=== PATIENT | male | born 1940 | race Caucasian/White ===

== ENCOUNTER 2020-06-20 14:32 | Inpatient (IN) | payer MEDICARE, OTHER ==
--- NOTE | 2020-06-20 15:12 | ERPHSYRPT ---
- History of Present Illness Time Seen by Provider: 06/20/20 14:50 Source: patient Exam Limitations: no limitations Patient Subjective Stated Complaint: pt here for weakness and confusion, he started getiing ill first of may and was seen at [facility] 06/03, dx with bronchitis , she states he did not finish hes meds given to him and has progressively gone down hill, and has not beed eating, drinking or taking meds Triage Nursing Assessment: pt arrived per POV, took 2 to get pt in bed,pt with eyes closed, he follows simple commands,face mask applied,resp easy, right lobe diminshed, no edema noted, skin w/d/p Physician History: Patient is a 80-year-old male presents to our ED via private vehicle driven by his for evaluation of generalized weakness and confusion. states symptoms started on June 03. Patient was not feeling well. Patient went to the [place] and was diagnosed with a bronchitis. Patient was medications presumably antibiotic and did not finish his prescription. Since then patient has been pr ogressively weak. Now confused. states patient has not eaten in several days. No fever. No chest pain. No trauma. No nausea or vomiting. No diarrhea. No rash. No obvious Covid exposure. Symptoms are progressive. Symptoms are moderate in intensity. No specific worsening or improving factors. states patient is otherwise generally healthy. He only takes medication for psoriatic arthritis. She voices no other complaints or concerns at this time. Timing/Duration: week(s) Severity: moderate Modifying Factors: Improves With: nothing Associated Symptoms: loss of appetite, No nausea, No vomiting, No abdominal pain, No shortness of breath, No diaphoresis, No cough, No chills, No chest pain, No fever Allergies/Adverse Reactions: No Known Drug Allergies Allergy (Unverified 06/20/20 14:46) Home Medications: Ixekizumab [Taltz Autoinjector] 1 ea 06/20/20 [History] No Reportable Medications [No Reported Medications] 06/20/20 [History] Hx Influenza Vaccination/Date Given: No Hx Pneumococcal Vaccination/Date Given: Yes Immunizations Up to Date: Yes Travel Risk - International Travel Have you traveled outside of the country in past 3 weeks: No - Coronavirus Screening Are you exhibiting any of the following symptoms?: No Close contact with a COVID-19 positive Pt in past 14-21 Days: No - Review of Systems Constitutional: No Symptoms, Other (Review of systems obtained from .), No Fever, No Chills Eyes: No Symptoms Ears, Nose, & Throat: No Symptoms Respiratory: No Symptoms, No Cough, No Dyspnea Cardiac: No Symptoms, No Chest Pain, No Edema, No Syncope Abdominal/Gastrointestinal: No Symptoms, No Abdominal Pain, No Nausea, No Vomiting, No Diarrhea Genitourinary Symptoms: No Symptoms, No Dysuria Musculoskeletal: No Symptoms, No Back Pain, No Neck Pain Skin: No Symptoms, No Rash Neurological: No Symptoms, No Dizziness, No Focal Weakness, No Sensory Changes Psychological: No Symptoms Endocrine: No Symptoms Hematologic/Lymphatic: No Symptoms Immunological/Allergic: No Symptoms All Other Systems: Reviewed and Negative - Past Medical History Pertinent Past Medical History: Yes Musculoskeletal History: Other Other Medical History: soriatic arthritis - Past Surgical History Past Surgical History: No - Social History Smoking Status: Former smoker Exposure to second hand smoke: No Drug Use: none Patient Lives Alone: No - Nursing Vital Signs Nursing Vital Signs: Initial Vital Signs Temperature 86 F 06/20/20 14:33 Pulse Rate 87 06/20/20 14:33 Respiratory Rate 22 06/20/20 14:33 Blood Pressure 195/114 06/20/20 14:33 O2 Sat by Pulse Oximetry 96 06/20/20 14:33 Pain Scale Pain Intensity 0 - Physical Exam General Appearance: alert, other (Patient is resting on stretcher. His eyes are closed. Patient respond to simple commands. Patient appears dehydrated.) Eye Exam: PERRL/EOMI, eyes nml inspection Ears, Nose, Throat Exam: normal ENT inspection, TMs normal, dry mucous membranes, TM abnormal (R), TM abnormal (L) Neck Exam: normal inspection, non-tender, supple, full range of motion Respiratory Exam: normal breath sounds, lungs clear, airway intact, No respiratory distress, No accessory muscle use Cardiovascular Exam: regular rate/rhythm, normal heart sounds, normal peripheral pulses Gastrointestinal/Abdomen Exam: soft, normal bowel sounds, No tenderness, No mass Back Exam: normal inspection, normal range of motion, No CVA tenderness, No vertebral tenderness Extremity Exam: normal inspection, normal range of motion, pelvis stable Neurologic Exam: alert, cooperative, antenna rigger II-XII nml as tested, sensation nml, other (Patient required max assist x2 for transfer. Patient is weak. He is cooperative. Patient responds to simple commands. No facial droop. No focal or lateralizing symptoms.), No motor deficits, No sensory deficit, No facial droop Skin Exam: normal color, warm, dry, No rash Lymphatic Exam: No adenopathy SpO2 Interpretation: normal SpO2: 97 O2 Delivery: Room Air - Course Nursing assessment & vital signs reviewed: Yes EKG Interpreted by Me: RATE, Sinus Rhythm, NORMAL AXIS, prolonged QT interval, Non-specific ST Changes - Radiology Exams Chest X-ray Interpretation: Teleradiologist Report (Chest shows hyperinflation however clear. Heart is not enlarged. Mild scattered vascular calcifications. Bony thorax intact with mild degenerative changes and minimal double curvature scoliosis.) - CT Exams Head CT Interpretation: Tele-radiologist Report (Cerebellum and left basal ganglia old infarcts. Remaining CT head without contrast is negative. Follow-up CT or MRI may yield further information if there remains clinical concern.) Ordered Tests: Active Orders 24 hr Category Date Time Status Pattern Finisher STAT Care 06/20/20 14:52 Active EKG-ER Only STAT Care 06/20/20 14:50 Active House [Catheter-[facility]] STAT Care 06/20/20 16:13 Active IV Insertion STAT Care 06/20/20 14:50 Active Pulse Oximetry (ED) STAT Care 06/20/20 14:50 Active CHEST 1 VIEW (PORTABLE) Stat Exams 06/20/20 14:52 Completed CHEST WITH CONTRAST [CT] Stat Exams 06/20/20 16:01 Taken HEAD WITHOUT CONTRAST [CT] Stat Exams 06/20/20 14:54 Completed CBC W DIFF Stat Lab 06/20/20 14:55 Completed CMP Stat Lab 06/20/20 14:55 Completed CULTURE,URINE Stat Lab 06/20/20 15:26 Received D-DIMER QUANTITATIVE Stat Lab 06/20/20 14:55 Completed MAGNESIUM Stat Lab 06/20/20 14:55 Completed TROPONIN Q3H Lab 06/20/20 14:55 Completed TROPONIN Q3H Lab 06/20/20 18:00 Received TROPONIN Q3H Lab 06/20/20 21:00 Ordered TROPONIN Q3H Lab 06/21/20 00:00 Ordered TROPONIN Q3H Lab 06/21/20 03:00 Ordered UA W/RFX UR CULTURE Stat Lab 06/20/20 15:26 Completed Transfer Order Routine Transfer 06/20/20 Ordered Medication Summary Generic Name Dose Route Start Last Admin Trade Name Qamar PRN Reason Stop Dose Admin Sodium Chloride 1,000 mls @ 50 mls/hr 06/20/20 15:00 06/20/20 15:28 Sodium Chloride 0.9% 1000 Ml IV 07/20/20 14:59 50 mls/hr .Q20H CARMEN Administration Lab/Rad Data: Laboratory Result Diagrams 06/20/20 14:55 06/20/20 14:55 Laboratory Results 06/20/20 06/20/20 06/20/20 Range/Units 15:26 14:55 14:55 WBC (4.0-10.5) K/mm3 RBC (4.1-5.6) M/mm3 Hgb (12.5-18.0) gm/dl Hct (42-50) % MCV (78-100) fl MCH (26-32) pg MCHC (32-36) g/dl RDW (11.5-14.0) % Plt Count (150-450) K/mm3 MPV (7.5-11.0) fl Gran % (36.0-66.0) % Eos # (Auto) (0-0.5) Absolute Lymphs (auto) (1.0-4.6) Absolute Monos (auto) (0.0-1.3) Lymphocytes % (24.0-44.0) % Monocytes % (0.0-12.0) % Eosinophils % (0.00-5.0) % Basophils % (0.0-0.4) % Absolute Granulocytes (1.4-6.9) Basophils # (0-0.4) D-Dimer 1780 H* (215-500) ng/mL Sodium (137-145) mmol/L Potassium (3.5-5.1) mmol/L Chloride (98-107) mmol/L Carbon Dioxide (22-30) mmol/L Anion Gap (5-15) MEQ/L BUN (9-20) mg/dL Creatinine (0.66-1.25) mg/dL Estimated GFR ML/MIN Glucose (74-106) mg/dL Calcium (8.4-10.2) mg/dL Magnesium (1.6-2.3) mg/dL Total Bilirubin (0.2-1.3) mg/dL AST (17-59) U/L ALT (0-50) U/L Alkaline Phosphatase (38-126) U/L Troponin I < 0.012 (0.000-0.034) ng/mL Serum Total Protein (6.3-8.2) g/dL Albumin (3.5-5.0) g/dL Urine Color YOKO (YELLOW) Urine Appearance SLIGHTLY CLOUDY (CLEAR) Urine pH 5.0 (5-6) Ur Specific Prospect 1.028 (1.005-1.025) Urine Protein 30 (Negative) Urine Ketones TRACE (NEGATIVE) Urine Blood LARGE (0-5) Humberto/ul Urine Nitrite NEGATIVE (NEGATIVE) Urine Bilirubin NEGATIVE (NEGATIVE) Urine Urobilinogen 2 (0-1) mg/dL Ur Leukocyte Esterase NEGATIVE (NEGATIVE) Urine WBC (Auto) 26-50 (0-5) /HPF Urine RBC (Auto) >101 (0-2) /HPF U Epithel Cells (Auto) NONE (FEW) /HPF Urine Bacteria (Auto) MODERATE (NEGATIVE) /HPF Urine Mucus (Auto) SLIGHT (NEGATIVE) /HPF Urine Culture Reflexed YES (NO) Urine Glucose NEGATIVE (NEGATIVE) mg/dL 06/20/20 06/20/20 Range/Units 14:55 14:55 WBC 7.5 (4.0-10.5) K/mm3 RBC 3.62 L (4.1-5.6) M/mm3 Hgb 11.6 L (12.5-18.0) gm/dl Hct 35.3 L (42-50) % MCV 97.5 (78-100) fl MCH 32.0 (26-32) pg MCHC 32.9 (32-36) g/dl RDW 13.2 (11.5-14.0) % Plt Count 347 (150-450) K/mm3 MPV 8.9 (7.5-11.0) fl Gran % 85.9 H (36.0-66.0) % Eos # (Auto) 0.12 (0-0.5) Absolute Lymphs (auto) 0.71 L (1.0-4.6) Absolute Monos (auto) 0.22 (0.0-1.3) Lymphocytes % 9.5 L (24.0-44.0) % Monocytes % 2.9 (0.0-12.0) % Eosinophils % 1.6 (0.00-5.0) % Basophils % 0.1 (0.0-0.4) % Absolute Granulocytes 6.43 (1.4-6.9) Basophils # 0.01 (0-0.4) D-Dimer (215-500) ng/mL Sodium 139 (137-145) mmol/L Potassium 4.3 (3.5-5.1) mmol/L Chloride 100 (98-107) mmol/L Carbon Dioxide 30 (22-30) mmol/L Anion Gap 12.7 (5-15) MEQ/L BUN 33 H (9-20) mg/dL Creatinine 1.25 (0.66-1.25) mg/dL Estimated GFR 58.8 ML/MIN Glucose 152 H (74-106) mg/dL Calcium 9.5 (8.4-10.2) mg/dL Magnesium 2.6 H (1.6-2.3) mg/dL Total Bilirubin 0.80 (0.2-1.3) mg/dL AST 21 (17-59) U/L ALT 16 (0-50) U/L Alkaline Phosphatase 100 (38-126) U/L Troponin I (0.000-0.034) ng/mL Serum Total Protein 7.5 (6.3-8.2) g/dL Albumin 3.5 (3.5-5.0) g/dL Urine Color (YELLOW) Urine Appearance (CLEAR) Urine pH (5-6) Ur Specific Prospect (1.005-1.025) Urine Protein (Negative) Urine Ketones (NEGATIVE) Urine Blood (0-5) Humberto/ul Urine Nitrite (NEGATIVE) Urine Bilirubin (NEGATIVE) Urine Urobilinogen (0-1) mg/dL Ur Leukocyte Esterase (NEGATIVE) Urine WBC (Auto) (0-5) /HPF Urine RBC (Auto) (0-2) /HPF U Epithel Cells (Auto) (FEW) /HPF Urine Bacteria (Auto) (NEGATIVE) /HPF Urine Mucus (Auto) (NEGATIVE) /HPF Urine Culture Reflexed (NO) Urine Glucose (NEGATIVE) mg/dL - Progress Progress: improved Progress Note: 06/20/20 18:50 Patient reassessed. He is more alert at this time. Patient more conversant after IV fluid administered. Work-up reveals a urinary tract infection. Rocephin administered. Due to the confusion reported by we obtain a CAT scan which revealed an old left cerebellar CVA and a old left basal ganglier CVA x2. D-dimer positive. CTA chest negative for PE. However patient has emphysema and a small pericardial effusion. Case discussed with Dr. Rivas our patients primary care physician who accepts admission to observation. Plan of care discussed with . She agrees to admission at [facility] for further evaluation and treatment. 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
[2020-06-20 15:19] LABS: Absolute Neutrophil Ct (ANC) 6.43 (1.4-6.9); BASOPHIL % 0.1 % (0.0-0.4); Basophil (Absolute #) 0.01 (0-0.4); Eosinophil % 1.6 % (0.00-5.0); Eosinophil (Absolute #) 0.12 (0-0.5); Hematocrit 35.3 % (42-50); Hemoglobin 11.6 gm/dl (12.5-18.0); Lymphocyte (Absolute #) 0.71 (1.0-4.6); Lymphocytes % 9.5 % (24.0-44.0); Mean Cell Volume 97.5 fl (78-100); Mean Corpuscular Hgb Concent. 32.9 g/dl (32-36); Mean Platelet Volume 8.9 fl (7.5-11.0); Monocyte (Absolute #) 0.22 (0.0-1.3); Monocytes % 2.9 % (0.0-12.0); Neutrophil % 85.9 % (36.0-66.0); Platelet Count 347 K/mm3 (150-450); Red Blood Count 3.62 M/mm3 (4.1-5.6); Red Cell Distribution Width 13.2 % (11.5-14.0); White Blood Count 7.5 K/mm3 (4.0-10.5)
--- NOTE | 2020-06-20 15:26 | XRAY ---
Indication: Weakness. Acute mental status change. Pneumonia. Comparison: None Portable chest hyperinflated and clear. Heart is not enlarged. Mild scattered vascular calcifications. Bony thorax intact with mild degenerative changes and minimal double curvature scoliosis. Impression: Nonacute hyperinflated chest with chronic features.
--- NOTE | 2020-06-20 15:27 | XRAY ---
Indication: Acute mental status change. Multiple contiguous axial images obtained through the head without contrast. Comparison: None Age-appropriate global atrophy. Left cerebellum demonstrates moderate size focus of old infarct. Left basal ganglia demonstrates 2 [id number] small foci of old infarct, largest measuring 1.6 cm. No acute intracranial hemorrhage, abnormal extra-axial fluid collection, or mass effect. Fourth ventricle is midline without hydrocephalus. Bony calvarium intact. Visualized paranasal sinuses and mastoid air cells are clear. Impression: Left cerebellum and left basal ganglia old infarcts. Remaining CT head without contrast exam is negative. Follow-up CT or MRI may yield further information if there remains clinical concern.
[2020-06-20] MEDS: Sodium Chloride 0.9% 1000 ML 1,000 ML IV SCH (15:28)
[2020-06-20 15:33] LABS: ALBUMIN 3.5 g/dL (3.5-5.0); ANION GAP 12.7 MEQ/L (5-15); BILIRUBIN,TOTAL 0.8 mg/dL (0.2-1.3); Calcium 9.5 mg/dL (8.4-10.2); Creatinine 1 1.25 mg/dL (0.66-1.25); EST GLOMERULAR FILTRATION RATE 58.8 ML/MIN; MAGNESIUM 2.6 mg/dL (1.6-2.3); Potassium 4.3 mmol/L (3.5-5.1); Total Protein 7.5 g/dL (6.3-8.2)
[2020-06-20 16:30] LABS: Appearance SLIGHTLY CLOUDY (CLEAR); Bacteria MODERATE /HPF (NEGATIVE); Bilirubin NEGATIVE (NEGATIVE); Blood LARGE Ery/ul (0-5); Glucose NEGATIVE (NEGATIVE); Ketones TRACE (NEGATIVE); Leukocyte Esterase NEGATIVE (NEGATIVE); Mucus SLIGHT /HPF (NEGATIVE); Nitrite NEGATIVE (NEGATIVE); Protein,Urine Dip 30 (Negative); RBC >101 /HPF (0-2); Specific Gravity 1.028 (1.005-1.025); Urobilinogen 2 mg/dL (0-1); WBC 26-50 /HPF (0-5)
[2020-06-20] MEDS ORDERED: ROCEPHIN 1 Gm-D5w 50 ml Bag** 1 G/50 ML IVPB IV ONE (22:37)
[2020-06-21 04:53] LABS: Absolute Neutrophil Ct (ANC) 6.15 (1.4-6.9); BASOPHIL % 0.3 % (0.0-0.4); Basophil (Absolute #) 0.02 (0-0.4); Eosinophil % 2.2 % (0.00-5.0); Eosinophil (Absolute #) 0.16 (0-0.5); Hemoglobin 10.6 gm/dl (12.5-18.0); Lymphocyte (Absolute #) 0.81 (1.0-4.6); Lymphocytes % 10.9 % (24.0-44.0); Mean Cell Volume 97.3 fl (78-100); Mean Corpuscular Hemoglobin 31.3 pg (26-32); Mean Corpuscular Hgb Concent. 32.1 g/dl (32-36); Mean Platelet Volume 8.6 fl (7.5-11.0); Neutrophil % 82.6 % (36.0-66.0); Platelet Count 308 K/mm3 (150-450); Red Blood Count 3.39 M/mm3 (4.1-5.6); Red Cell Distribution Width 13.1 % (11.5-14.0); White Blood Count 7.4 K/mm3 (4.0-10.5)
[2020-06-21 05:16] LABS: ALBUMIN 2.7 g/dL (3.5-5.0); ALKALINE PHOSPHATASE 85 U/L (38-126); ANION GAP 11.8 MEQ/L (5-15); BLOOD UREA NITROGEN 31 mg/dL (9-20); CHLORIDE 105 mmol/L (98-107); Calcium 8.9 mg/dL (8.4-10.2); Carbon Dioxide 27 mmol/L (22-30); Creatinine 1 0.98 mg/dL (0.66-1.25); EST GLOMERULAR FILTRATION RATE > 60.0 ML/MIN; Glucose 130 mg/dL (74-106); Potassium 4.3 mmol/L (3.5-5.1); SGOT/AST 23 U/L (17-59); SGPT/ALT 14 U/L (0-50); SODIUM 140 mmol/L (137-145); Total Protein 5.9 g/dL (6.3-8.2)
--- NOTE | 2020-06-21 08:48 | XRAY ---
Indication: Weakness. Elevated d-dimer. Multiple contiguous axial images obtained through the chest using 100 cc Isovue 370 contrast and PE protocol. Comparison: None There is good opacification of the pulmonary arteries to include the lobar and segmental branches. Minimal respiration artifact limits evaluation of the more distal segmental branches. No pulmonary embolus. Enlarged right main pulmonary artery up to 3 cm favors pulmonary hypertension. Heart is not enlarged. There is small anterior pericardial effusion/thickening up to 1.3 cm in thickness. Aorta is mildly arteriosclerotic without aneurysm/dissection. No pathologic mediastinal/hilar lymphadenopathy. Lungs demonstrates diffuse pulmonary emphysema and mild bilateral dependent atelectasis. No suspicious pulmonary mass/nodule, infiltrate, or effusion. Bony thorax intact with mild osteopenia and mild/moderate degenerative changes throughout the spine. Limited upper abdomen demonstrates 1.5 cm right renal cyst. Impression: 1. Negative pulmonary embolus. Enlarged right main pulmonary artery favors pulmonary hypertension. 2. Small pericardial effusion/thickening. Echocardiogram may yield further information if clinically warranted. 3. Diffuse pulmonary emphysema, chronic bony findings, and right renal cyst.
[2020-06-21] MEDS: Sodium Chloride 0.9% 1000 ML 1,000 ML IV SCH (11:35)
--- NOTE | 2020-06-21 11:36 | PCM.HP ---
History of Present Illness - Chief Complaint Chief Complaint: c/o fever, urinary trouble History of Present Illness: is a 80-year-old male presents to our ED via private vehicle driven by his for evaluation of generalized weakness and confusion. states symptoms started on June 03. Patient was not feeling well. Patient went to the [place] and was diagnosed with a bronchitis. Patient was medications presumably antibiotic and did not finish his prescription. Since then patient has been progressively weak. Now confused. states patient has not eaten in several days. No fever. No chest pain. No trauma. No nausea or vomiting. No diarrhea. No rash. No obvious Covid exposure. Symptoms are progressive. Symptoms are moderate in intensity. No specific worsening or improving factors. states patient is otherwise generally healthy. He only takes medication for psoriatic arthritis. She voices no other complaints or concerns at this time. Timing/Duration: week(s) Severity: moderate Modifying Factors: Improves With: nothing Associated Symptoms: loss of appetite, No nausea, No vomiting, No abdominal pain, No shortness of breath, No diaphoresis, No cough, No chills, No chest pain, No fever - Review of Systems Constitutional: No Fever, No Chills Eyes: No Symptoms Ears, Nose, & Throat: No Symptoms Respiratory: Orthopnea, Short Of Breath, No Cough Cardiac: No Chest Pain, No Edema, No Syncope Abdominal/Gastrointestinal: No Abdominal Pain, No Nausea, No Vomiting, No Diarrhea Genitourinary Symptoms: No Dysuria Musculoskeletal: No Back Pain, No Neck Pain Skin: No Rash Neurological: No Dizziness, No Focal Weakness, No Sensory Changes Psychological: No Symptoms Endocrine: No Symptoms Hematologic/Lymphatic: No Symptoms Immunological/Allergic: No Symptoms Medications & Allergies Home Medications: Home Medication List Ixekizumab [Taltz Autoinjector] 1 ea SQ Q30D 06/20/20 [History Confirmed 06/20/20] Allergies/Adverse Reactions: Allergies Allergy/AdvReac Type Severity Reaction Status Date / Time No Known Drug Allergies Allergy Unverified 06/20/20 14:46 - Past Medical History Past Medical History: Yes Musculoskelatal History: Other Comment: soriatic arthritis - Past Surgical History Past Surgical History: No - Social History Smoking Status: Never smoker Exposure to second hand smoke: No Alcohol: None Drug Use: none - Physical Exam Vital Signs: Vital Signs - 24 hr Temp Pulse Resp BP Pulse Ox 12/08/20 08:00 98.8 F 76 18 168/68 93 L 06/21/20 04:00 99.5 F 86 20 156/78 96 06/21/20 00:00 99.1 F 73 22 161/58 95 06/20/20 22:10 96 06/20/20 21:23 98.7 F 71 23 150/68 96 06/20/20 21:21 98.7 F 71 23 150/68 96 06/20/20 21:11 98.7 F 71 23 150/68 96 06/20/20 20:05 72 16 172/73 96 06/20/20 19:00 74 16 170/74 97 06/20/20 18:54 97 06/20/20 18:10 77 22 151/98 95 06/20/20 17:33 98.0 F 73 23 160/66 97 06/20/20 16:11 80 16 175/89 98 06/20/20 15:00 94 L 06/20/20 14:33 86 F 87 22 195/114 97 General Appearance: no apparent distress, alert Neurologic Exam: alert, oriented x 3, cooperative, normal mood/affect, nml cerebellar function, nml station & gait, sensation nml, No motor deficits Eye Exam: PERRL/EOMI, eyes nml inspection Ears, Nose, Throat Exam: normal ENT inspection, TMs normal, pharynx normal, moist mucous membranes Neck Exam: normal inspection, non-tender, supple, full range of motion Respiratory Exam: diminished breath sounds, crackles/rales, rhonchi, wheezing, No respiratory distress Cardiovascular Exam: regular rate/rhythm, normal heart sounds, normal peripheral pulses Gastrointestinal/Abdomen Exam: soft, normal bowel sounds, No tenderness, No mass Back Exam: normal inspection, normal range of motion, No CVA tenderness, No vertebral tenderness Extremity Exam: normal inspection, normal range of motion, pelvis stable Skin Exam: normal color, warm, dry, No rash Lymphatic Exam: No adenopathy Results - Labs Lab/Micro Results: Lab Results-Last 24 Hours 06/20/20 06/20/20 06/20/20 Range/Units 14:55 14:55 14:55 WBC 7.5 (4.0-10.5) K/mm3 RBC 3.62 L (4.1-5.6) M/mm3 Hgb 11.6 L (12.5-18.0) gm/dl Hct 35.3 L (42-50) % MCV 97.5 (78-100) fl MCH 32.0 (26-32) pg MCHC 32.9 (32-36) g/dl RDW 13.2 (11.5-14.0) % Plt Count 347 (150-450) K/mm3 MPV 8.9 (7.5-11.0) fl Gran % 85.9 H (36.0-66.0) % Eos # (Auto) 0.12 (0-0.5) Absolute Lymphs (auto) 0.71 L (1.0-4.6) Absolute Monos (auto) 0.22 (0.0-1.3) Lymphocytes % 9.5 L (24.0-44.0) % Monocytes % 2.9 (0.0-12.0) % Eosinophils % 1.6 (0.00-5.0) % Basophils % 0.1 (0.0-0.4) % Absolute Granulocytes 6.43 (1.4-6.9) Basophils # 0.01 (0-0.4) D-Dimer 1780 H* (215-500) ng/mL Sodium 139 (137-145) mmol/L Potassium 4.3 (3.5-5.1) mmol/L Chloride 100 (98-107) mmol/L Carbon Dioxide 30 (22-30) mmol/L Anion Gap 12.7 (5-15) MEQ/L BUN 33 H (9-20) mg/dL Creatinine 1.25 (0.66-1.25) mg/dL Estimated GFR 58.8 ML/MIN Glucose 152 H (74-106) mg/dL Calcium 9.5 (8.4-10.2) mg/dL Magnesium 2.6 H (1.6-2.3) mg/dL Total Bilirubin 0.80 (0.2-1.3) mg/dL AST 21 (17-59) U/L ALT 16 (0-50) U/L Alkaline Phosphatase 100 (38-126) U/L Troponin I (0.000-0.034) ng/mL Serum Total Protein 7.5 (6.3-8.2) g/dL Albumin 3.5 (3.5-5.0) g/dL Urine Color (YELLOW) Urine Appearance (CLEAR) Urine pH (5-6) Ur Specific Lamona (1.005-1.025) Urine Protein (Negative) Urine Ketones (NEGATIVE) Urine Blood (0-5) Humberto/ul Urine Nitrite (NEGATIVE) Urine Bilirubin (NEGATIVE) Urine Urobilinogen (0-1) mg/dL Ur Leukocyte Esterase (NEGATIVE) Urine WBC (Auto) (0-5) /HPF Urine RBC (Auto) (0-2) /HPF U Epithel Cells (Auto) (FEW) /HPF Urine Bacteria (Auto) (NEGATIVE) /HPF Urine Mucus (Auto) (NEGATIVE) /HPF Urine Culture Reflexed (NO) Urine Glucose (NEGATIVE) mg/dL 06/20/20 06/20/20 06/20/20 Range/Units 14:55 15:26 18:00 WBC (4.0-10.5) K/mm3 RBC (4.1-5.6) M/mm3 Hgb (12.5-18.0) gm/dl Hct (42-50) % MCV (78-100) fl MCH (26-32) pg MCHC (32-36) g/dl RDW (11.5-14.0) % Plt Count (150-450) K/mm3 MPV (7.5-11.0) fl Gran % (36.0-66.0) % Eos # (Auto) (0-0.5) Absolute Lymphs (auto) (1.0-4.6) Absolute Monos (auto) (0.0-1.3) Lymphocytes % (24.0-44.0) % Monocytes % (0.0-12.0) % Eosinophils % (0.00-5.0) % Basophils % (0.0-0.4) % Absolute Granulocytes (1.4-6.9) Basophils # (0-0.4) D-Dimer (215-500) ng/mL Sodium (137-145) mmol/L Potassium (3.5-5.1) mmol/L Chloride (98-107) mmol/L Carbon Dioxide (22-30) mmol/L Anion Gap (5-15) MEQ/L BUN (9-20) mg/dL Creatinine (0.66-1.25) mg/dL Estimated GFR ML/MIN Glucose (74-106) mg/dL Calcium (8.4-10.2) mg/dL Magnesium (1.6-2.3) mg/dL Total Bilirubin (0.2-1.3) mg/dL AST (17-59) U/L ALT (0-50) U/L Alkaline Phosphatase (38-126) U/L Troponin I < 0.012 < 0.012 (0.000-0.034) ng/mL Serum Total Protein (6.3-8.2) g/dL Albumin (3.5-5.0) g/dL Urine Color YOKO (YELLOW) Urine Appearance SLIGHTLY CLOUDY (CLEAR) Urine pH 5.0 (5-6) Ur Specific Lamona 1.028 (1.005-1.025) Urine Protein 30 (Negative) Urine Ketones TRACE (NEGATIVE) Urine Blood LARGE (0-5) Humberto/ul Urine Nitrite NEGATIVE (NEGATIVE) Urine Bilirubin NEGATIVE (NEGATIVE) Urine Urobilinogen 2 (0-1) mg/dL Ur Leukocyte Esterase NEGATIVE (NEGATIVE) Urine WBC (Auto) 26-50 (0-5) /HPF Urine RBC (Auto) >101 (0-2) /HPF U Epithel Cells (Auto) NONE (FEW) /HPF Urine Bacteria (Auto) MODERATE (NEGATIVE) /HPF Urine Mucus (Auto) SLIGHT (NEGATIVE) /HPF Urine Culture Reflexed YES (NO) Urine Glucose NEGATIVE (NEGATIVE) mg/dL 06/20/20 06/21/20 06/21/20 Range/Units 21:10 00:30 04:27 WBC (4.0-10.5) K/mm3 RBC (4.1-5.6) M/mm3 Hgb (12.5-18.0) gm/dl Hct (42-50) % MCV (78-100) fl MCH (26-32) pg MCHC (32-36) g/dl RDW (11.5-14.0) % Plt Count (150-450) K/mm3 MPV (7.5-11.0) fl Gran % (36.0-66.0) % Eos # (Auto) (0-0.5) Absolute Lymphs (auto) (1.0-4.6) Absolute Monos (auto) (0.0-1.3) Lymphocytes % (24.0-44.0) % Monocytes % (0.0-12.0) % Eosinophils % (0.00-5.0) % Basophils % (0.0-0.4) % Absolute Granulocytes (1.4-6.9) Basophils # (0-0.4) D-Dimer (215-500) ng/mL Sodium (137-145) mmol/L Potassium (3.5-5.1) mmol/L Chloride (98-107) mmol/L Carbon Dioxide (22-30) mmol/L Anion Gap (5-15) MEQ/L BUN (9-20) mg/dL Creatinine (0.66-1.25) mg/dL Estimated GFR ML/MIN Glucose (74-106) mg/dL Calcium (8.4-10.2) mg/dL Magnesium (1.6-2.3) mg/dL Total Bilirubin (0.2-1.3) mg/dL AST (17-59) U/L ALT (0-50) U/L Alkaline Phosphatase (38-126) U/L Troponin I < 0.012 < 0.012 0.012 (0.000-0.034) ng/mL Serum Total Protein (6.3-8.2) g/dL Albumin (3.5-5.0) g/dL Urine Color (YELLOW) Urine Appearance (CLEAR) Urine pH (5-6) Ur Specific Lamona (1.005-1.025) Urine Protein (Negative) Urine Ketones (NEGATIVE) Urine Blood (0-5) Humberto/ul Urine Nitrite (NEGATIVE) Urine Bilirubin (NEGATIVE) Urine Urobilinogen (0-1) mg/dL Ur Leukocyte Esterase (NEGATIVE) Urine WBC (Auto) (0-5) /HPF Urine RBC (Auto) (0-2) /HPF U Epithel Cells (Auto) (FEW) /HPF Urine Bacteria (Auto) (NEGATIVE) /HPF Urine Mucus (Auto) (NEGATIVE) /HPF Urine Culture Reflexed (NO) Urine Glucose (NEGATIVE) mg/dL 06/21/20 06/21/20 Range/Units 04:27 04:27 WBC 7.4 (4.0-10.5) K/mm3 RBC 3.39 L (4.1-5.6) M/mm3 Hgb 10.6 L (12.5-18.0) gm/dl Hct 33.0 L (42-50) % MCV 97.3 (78-100) fl MCH 31.3 (26-32) pg MCHC 32.1 (32-36) g/dl RDW 13.1 (11.5-14.0) % Plt Count 308 (150-450) K/mm3 MPV 8.6 (7.5-11.0) fl Gran % 82.6 H (36.0-66.0) % Eos # (Auto) 0.16 (0-0.5) Absolute Lymphs (auto) 0.81 L (1.0-4.6) Absolute Monos (auto) 0.30 (0.0-1.3) Lymphocytes % 10.9 L (24.0-44.0) % Monocytes % 4.0 (0.0-12.0) % Eosinophils % 2.2 (0.00-5.0) % Basophils % 0.3 (0.0-0.4) % Absolute Granulocytes 6.15 (1.4-6.9) Basophils # 0.02 (0-0.4) D-Dimer (215-500) ng/mL Sodium 140 (137-145) mmol/L Potassium 4.3 (3.5-5.1) mmol/L Chloride 105 (98-107) mmol/L Carbon Dioxide 27 (22-30) mmol/L Anion Gap 11.8 (5-15) MEQ/L BUN 31 H (9-20) mg/dL Creatinine 0.98 (0.66-1.25) mg/dL Estimated GFR > 60.0 ML/MIN Glucose 130 H (74-106) mg/dL Calcium 8.9 (8.4-10.2) mg/dL Magnesium (1.6-2.3) mg/dL Total Bilirubin 0.70 (0.2-1.3) mg/dL AST 23 (17-59) U/L ALT 14 (0-50) U/L Alkaline Phosphatase 85 (38-126) U/L Troponin I (0.000-0.034) ng/mL Serum Total Protein 5.9 L (6.3-8.2) g/dL Albumin 2.7 L (3.5-5.0) g/dL Urine Color (YELLOW) Urine Appearance (CLEAR) Urine pH (5-6) Ur Specific Lamona (1.005-1.025) Urine Protein (Negative) Urine Ketones (NEGATIVE) Urine Blood (0-5) Humberto/ul Urine Nitrite (NEGATIVE) Urine Bilirubin (NEGATIVE) Urine Urobilinogen (0-1) mg/dL Ur Leukocyte Esterase (NEGATIVE) Urine WBC (Auto) (0-5) /HPF Urine RBC (Auto) (0-2) /HPF U Epithel Cells (Auto) (FEW) /HPF Urine Bacteria (Auto) (NEGATIVE) /HPF Urine Mucus (Auto) (NEGATIVE) /HPF Urine Culture Reflexed (NO) Urine Glucose (NEGATIVE) mg/dL Microbiology 06/20/20 15:26 Urine Culture - Preliminary Urine, Void NO GROWTH TO DATE - Radiology Impressions Radiology Exams & Impressions: Radiology Procedures Category Date Time Status CHEST 1 VIEW (PORTABLE) Stat Exams 06/20/20 14:52 Completed CHEST WITH CONTRAST [CT] Stat Exams 06/20/20 16:01 Completed HEAD WITHOUT CONTRAST [CT] Stat Exams 06/20/20 14:54 Completed Assessment/Plan (1) Confusion Current Visit: Yes Status: Acute Assessment & Plan: Chief Complaint Diagnosis UTI Allergies Allergy/AdvReac Type Severity Reaction Status Date / Time No Known Drug Allergies Allergy Unverified 06/20/20 14:46 Vital Signs (Last 24 hours) Temp Pulse Resp BP Pulse Ox 06/21/20 08:00 98.8 F 76 18 168/68 93 L 06/21/20 04:00 99.5 F 86 20 156/78 96 06/21/20 00:00 99.1 F 73 22 161/58 95 06/20/20 22:10 96 06/20/20 21:23 98.7 F 71 23 150/68 96 06/20/20 21:21 98.7 F 71 23 150/68 96 06/20/20 21:11 98.7 F 71 23 150/68 96 06/20/20 20:05 72 16 172/73 96 06/20/20 19:00 74 16 170/74 97 06/20/20 18:54 97 06/20/20 18:10 77 22 151/98 95 06/20/20 17:33 98.0 F 73 23 160/66 97 06/20/20 16:11 80 16 175/89 98 06/20/20 15:00 94 L 06/20/20 14:33 86 F 87 22 195/114 97 Home Medications Medication Instructions Recorded Confirmed Last Taken Type Ixekizumab [Taltz Autoinjector] 1 ea SQ Q30D 06/20/20 06/20/20 Unknown History Current Medications Generic Name Dose Route Start Last Admin Trade Name Qamar PRN Reason Stop Dose Admin Sodium Chloride 1,000 mls @ 50 mls/hr 06/20/20 15:00 06/20/20 15:28 Sodium Chloride 0.9% 1000 Ml IV 07/20/20 14:59 50 mls/hr .Q20H CARMEN Administration Sodium Chloride 1,000 mls @ 100 mls/hr 06/20/20 21:06 Sodium Chloride 0.9% 1000 Ml IV 07/20/20 21:05 .Q10H CARMEN Discontinued Medications Generic Name Dose Route Start Last Admin Trade Name Freq PRN Reason Stop Dose Admin Ceftriaxone Sodium/Dextrose 1 g in 50 mls @ 100 mls/hr 06/20/20 22:37 06/20/20 22:40 Rocephin 1 Gm-D5w 50 Ml Bag IV 06/20/20 23:06 100 mls/hr ONCE ONE Administration Intake & Output (Last 24 hours) 06/18/20 06/19/20 06/20/20 06/21/20 11:59 11:59 11:59 11:59 Intake Total 381 Output Total 350 Balance 31 Weight 62.5 kg Microbiology Results (Last 24 hours) 06/20/20 15:26 Urine, Void Urine Culture - Preliminary NO GROWTH TO DATE Laboratory Results (Last 24 hours) 06/21/20 06/21/20 06/21/20 04:27 04:27 04:27 WBC 7.4 RBC 3.39 L Hgb 10.6 L Hct 33.0 L MCV 97.3 MCH 31.3 MCHC 32.1 RDW 13.1 Plt Count 308 MPV 8.6 Gran % 82.6 H Eos # (Auto) 0.16 Absolute Lymphs (auto) 0.81 L Absolute Monos (auto) 0.30 Lymphocytes % 10.9 L Monocytes % 4.0 Eosinophils % 2.2 Basophils % 0.3 Absolute Granulocytes 6.15 Basophils # 0.02 D-Dimer Sodium 140 Potassium 4.3 Chloride 105 Carbon Dioxide 27 Anion Gap 11.8 BUN 31 H Creatinine 0.98 Estimated GFR > 60.0 Glucose 130 H Calcium 8.9 Magnesium Total Bilirubin 0.70 AST 23 ALT 14 Alkaline Phosphatase 85 Troponin I 0.012 Serum Total Protein 5.9 L Albumin 2.7 L Urine Color Urine Appearance Urine pH Ur Specific Lamona Urine Protein Urine Ketones Urine Blood Urine Nitrite Urine Bilirubin Urine Urobilinogen Ur Leukocyte Esterase Urine WBC (Auto) Urine RBC (Auto) U Epithel Cells (Auto) Urine Bacteria (Auto) Urine Mucus (Auto) Urine Culture Reflexed Urine Glucose 06/21/20 06/20/20 06/20/20 00:30 21:10 18:00 WBC RBC Hgb Hct MCV MCH MCHC RDW Plt Count MPV Gran % Eos # (Auto) Absolute Lymphs (auto) Absolute Monos (auto) Lymphocytes % Monocytes % Eosinophils % Basophils % Absolute Granulocytes Basophils # D-Dimer Sodium Potassium Chloride Carbon Dioxide Anion Gap BUN Creatinine Estimated GFR Glucose Calcium Magnesium Total Bilirubin AST ALT Alkaline Phosphatase Troponin I < 0.012 < 0.012 < 0.012 Serum Total Protein Albumin Urine Color Urine Appearance Urine pH Ur Specific Lamona Urine Protein Urine Ketones Urine Blood Urine Nitrite Urine Bilirubin Urine Urobilinogen Ur Leukocyte Esterase Urine WBC (Auto) Urine RBC (Auto) U Epithel Cells (Auto) Urine Bacteria (Auto) Urine Mucus (Auto) Urine Culture Reflexed Urine Glucose 06/20/20 06/20/20 06/20/20 15:26 14:55 14:55 WBC RBC Hgb Hct MCV MCH MCHC RDW Plt Count MPV Gran % Eos # (Auto) Absolute Lymphs (auto) Absolute Monos (auto) Lymphocytes % Monocytes % Eosinophils % Basophils % Absolute Granulocytes Basophils # D-Dimer 1780 H* Sodium Potassium Chloride Carbon Dioxide Anion Gap BUN Creatinine Estimated GFR Glucose Calcium Magnesium Total Bilirubin AST ALT Alkaline Phosphatase Troponin I < 0.012 Serum Total Protein Albumin Urine Color YOKO Urine Appearance SLIGHTLY CLOUDY Urine pH 5.0 Ur Specific Lamona 1.028 Urine Protein 30 Urine Ketones TRACE Urine Blood LARGE Urine Nitrite NEGATIVE Urine Bilirubin NEGATIVE Urine Urobilinogen 2 Ur Leukocyte Esterase NEGATIVE Urine WBC (Auto) 26-50 Urine RBC (Auto) >101 U Epithel Cells (Auto) NONE Urine Bacteria (Auto) MODERATE Urine Mucus (Auto) SLIGHT Urine Culture Reflexed YES Urine Glucose NEGATIVE 06/20/20 06/20/20 14:55 14:55 WBC 7.5 RBC 3.62 L Hgb 11.6 L Hct 35.3 L MCV 97.5 MCH 32.0 MCHC 32.9 RDW 13.2 Plt Count 347 MPV 8.9 Gran % 85.9 H Eos # (Auto) 0.12 Absolute Lymphs (auto) 0.71 L Absolute Monos (auto) 0.22 Lymphocytes % 9.5 L Monocytes % 2.9 Eosinophils % 1.6 Basophils % 0.1 Absolute Granulocytes 6.43 Basophils # 0.01 D-Dimer Sodium 139 Potassium 4.3 Chloride 100 Carbon Dioxide 30 Anion Gap 12.7 BUN 33 H Creatinine 1.25 Estimated GFR 58.8 Glucose 152 H Calcium 9.5 Magnesium 2.6 H Total Bilirubin 0.80 AST 21 ALT 16 Alkaline Phosphatase 100 Troponin I Serum Total Protein 7.5 Albumin 3.5 Urine Color Urine Appearance Urine pH Ur Specific Lamona Urine Protein Urine Ketones Urine Blood Urine Nitrite Urine Bilirubin Urine Urobilinogen Ur Leukocyte Esterase Urine WBC (Auto) Urine RBC (Auto) U Epithel Cells (Auto) Urine Bacteria (Auto) Urine Mucus (Auto) Urine Culture Reflexed Urine Glucose Orders (Last 24 hours) Category Date Time Status Bedrest ROUTINE Activity 06/20/20 21:06 Active Food Editor STAT Care 06/20/20 14:52 Completed Code Status Order ROUTINE Care 06/20/20 21:06 Active EKG-ER Only STAT Care 06/20/20 14:50 Completed House [[facility]athe[facility]] STAT Care 06/20/20 16:13 Completed IV Insertion STAT Care 06/20/20 14:50 Completed Neuro Checks Q4H Care 06/20/20 21:[address] in Observation ROUTINE Care 06/20/20 21:06 Active Pulse Oximetry (ED) STAT Care 06/20/20 14:50 Completed Telemetry q6h Care 06/20/20 21:06 Active Infection Control Consult ROUTINE Cons 06/20/20 21:51 Active CHEST 1 VIEW (PORTABLE) Stat Exams 06/20/20 14:52 Completed CHEST WITH CONTRAST [CT] Stat Exams 06/20/20 16:01 Completed HEAD WITHOUT CONTRAST [CT] Stat Exams 06/20/20 14:54 Completed CBC W DIFF AM.LAB Lab 06/21/20 04:27 Completed CBC W DIFF Stat Lab 06/20/20 14:55 Completed CMP AM.LAB Lab 06/21/20 04:27 Completed CMP Stat Lab 06/20/20 14:55 Completed CULTURE,URINE Stat Lab 06/20/20 15:26 Results D-DIMER QUANTITATIVE Stat Lab 06/20/20 14:55 Completed MAGNESIUM Stat Lab 06/20/20 14:55 Completed TROPONIN Q3H Lab 06/20/20 14:55 Completed TROPONIN Q3H Lab 06/20/20 18:00 Completed TROPONIN Q3H Lab 06/20/20 21:10 Completed TROPONIN Q3H Lab 06/21/20 00:30 Completed TROPONIN Q3H Lab 06/21/20 04:27 Completed UA W/RFX UR CULTURE Stat Lab 06/20/20 15:26 Completed Ceftriaxone 1 GM/50 ML PREMIX* [ROCEPHIN 1 Gm-D5w 50 ml Med 06/20/20 22:37 Discontinued Bag] 1 g in 50 ml IV ONCE NaCl 0.9% 1000 ml [Sodium Chloride 0.9% 1000 ML] 1,000 Med 06/20/20 21:06 Active ml IV 100 mls/hr NaCl 0.9% 1000 ml [Sodium Chloride 0.9% 1000 ML] 1,000 Med 06/20/20 15:00 Active ml IV 50 mls/hr Pulse Oximetry ROUTINE RT 06/20/20 21:06 Completed Patient Care Notes (Last 24 hours) 06/20/20 22:35 Nursing Note by Thalia Pittman Upon checking admission orders, it was discovered no antibiotic was ordered for the patient on the floor and none was given to the patient in ER. Called and checked with the ER physician and received a one time order for Rocephin 1 g to be given now. Pt's primary doctor to provide new orders for antibiotics in the am Initialized on 06/20/20 22:35 - END OF NOTE 06/20/20 21:51 Nursing Note by Thalia Pittman Pt admitted from the ER. Pt very sleepy. Will arouse to name and movement but will not open eyes or answer any questions. 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
[2020-06-21] MEDS ORDERED: IXEKIZUMAB SQ SCH (12:30)
[2020-06-21] MEDS ORDERED: MEDICATION INTERVENTION MC SCH (12:45)
[2020-06-21 15:06] LABS: A-aADO2 30; ABG HEMOGLOBIN 11.6; ABG POTASSIUM 4.2 (3.5-5.1); ABG SITE RIGHT RADIAL; ALLEN TEST OK? YES; ARTERIAL BLD GAS O2 SATURATION 95.6 % (95-100); ARTERIAL BLOOD GAS BASE EXCESS 3.1 (-2.0-2.0); ARTERIAL BLOOD GAS FIO2 21 %; ARTERIAL BLOOD GAS PCO2 38 mmHg (35-45); ARTERIAL BLOOD GAS PO2 72 mmHg (75-100); ARTERIAL BLOOD GAS pH 7.46 (7.35-7.45); CARBOXYHEMOGLOBIN 1.8 % THgb (0.0-6.9); HGB O2 SAT 92.9 g/dF (94-100); Methhemoglobin 0.9 % (1.4-1.5); paO2 pAO1 0.71
[2020-06-21] MEDS: ROCEPHIN 1 Gm-D5w 50 ml Bag** 1 G/50 ML IVPB IV SCH (22:01)
[2020-06-22] MEDS: Sodium Chloride 0.9% 1000 ML 1,000 ML IV SCH ×3 (06:16→19:58)
--- NOTE | 2020-06-22 11:46 | PCM.NOTE ---
Date and Time: 06/22/20 1144 Subjective Assessment: still very confused. - Review of Systems Constitutional: No Fever, No Chills Eyes: No Symptoms Ears, Nose, & Throat: No Symptoms Respiratory: No Cough, No Short Of Breath Cardiac: No Chest Pain, No Edema, No Syncope Abdominal/Gastrointestinal: No Abdominal Pain, No Nausea, No Vomiting, No Diarrhea Genitourinary Symptoms: No Dysuria Musculoskeletal: No Back Pain, No Neck Pain Skin: No Rash Neurological: No Dizziness, No Focal Weakness, No Sensory Changes Psychological: Anxiety Endocrine: No Symptoms Hematologic/Lymphatic: No Symptoms Immunological/Allergic: No Symptoms Objective Exam General Appearance: no apparent distress, alert Neurologic Exam: confusion, No motor deficits Skin Exam: normal color, warm, dry Eye Exam: PERRL, EOMI, eyes nml inspection Ears, Nose, Throat Exam: normal ENT inspection, pharynx normal, moist mucous membranes Neck Exam: normal inspection, non-tender, supple, full range of motion Respiratory Exam: normal breath sounds, lungs clear, No respiratory distress Cardiovascular Exam: regular rate/rhythm, normal heart sounds Gastrointestinal/Abdomen Exam: soft, No tenderness, No mass Extremity Exam: normal inspection, normal range of motion Back Exam: normal inspection, normal range of motion, No CVA tenderness, No vertebral tenderness Male Genitalia Exam: deferred Rectal Exam: deferred OBJECTIVE DATA Vital Signs: Vital Signs - 24 hr Temp Pulse Resp BP Pulse Ox 06/22/20 07:43 89 16 147/74 95 06/22/20 04:17 98.0 F 76 18 153/72 93 L 06/21/20 23:24 98.9 F 98 H 18 169/85 94 L 06/21/20 21:23 94 L 06/21/20 20:00 99 F 83 14 150/74 97 06/21/20 16:00 99 F 87 20 168/77 99 06/21/20 12:00 97.3 F 72 16 179/80 96 Pain Assessment - Last Documented Pain Intensity 0 Intake and Output: Intake & Output 06/19/20 06/20/20 06/21/20 06/22/20 11:59 11:59 11:59 11:59 Intake Total 381 2087 Output Total 350 900 Balance 31 1187 Weight 62.5 kg Lab Results: Lab Results-Last 24 Hours 12/08/20 12/08/20 Range/Units 15:02 15:46 Puncture Site RIGHT RADIAL pCO2 38 (35-45) mmHg pO2 72 L (75-100) mmHg Base Excess 3.1 H (-2.0-2.0) O2 Saturation 92.9 L (94-100) g/dF ABG pH 7.46 H (7.35-7.45) ABG HCO3 27.0 (22-28) ABG O2 Sat (Measured) 95.6 (95-100) % Fred Test YES A-a Gradient 30 a/A Ratio 0.71 Hemoglobin 11.6 Carboxyhemoglobin 1.8 (0.0-6.9) % THgb Methemoglobin 0.9 L (1.4-1.5) % Potassium 4.2 (3.5-5.1) Temperature 37.0 C POC O2 Flow Rate 21 % Ammonia < 9 L (9-30) umol/L Radiology Exams: Radiology Procedures Category Date Time Status CHEST 1 VIEW (PORTABLE) Stat Exams 06/20/20 14:52 Completed CHEST WITH CONTRAST [CT] Stat Exams 06/20/20 16:01 Completed HEAD WITHOUT CONTRAST [CT] Stat Exams 06/20/20 14:54 Completed Multi-Disciplinary Progress Notes: Multi-Disciplinary Progress Notes 06/22/20 11:31 Case Management Note by Umu Rubio ASKED DR. RIVAS ABOUT INDICATION FOR COVID TEST- HE CANCELLED ORDER FOR COVID TEST STILL WAITING FOR BED AT [facility] AT THIS TIME Initialized on 06/22/20 11:31 - END OF NOTE 06/21/20 13:37 Case Management Note by Umu Rubio PER NURSING PATIENT EXTREMELY DROWSY PATIENT MAY POSSIBLEY TRANSFER TO [place]- WILL WAIT TO DO CASE MANAGEMENT ASSESS UNTIL TOMORROW Initialized on 06/21/20 13:37 - END OF NOTE 06/21/20 12:26 Case Management Note by Umu Rubio DR. ROUNDED- WOULD LIKE PATIENT TESTED FOR COVID AND TRANSFERRED TO [facility]. CALLED [facility]- THEY DO NOT HAVE ANY COVID BEDS. IF PATIENT IS COVID+ THEY CANNOT ACCEPT. IF NOT COVID- THEY DO HAVE BEDS. THEY WILL HAVE THEIR PHY BENITOIAN DO A PEER TO PEER WITH DR. RIVAS. THEY WILL CALL CORRESPONDENCE SPECIALIST BACK Initialized on 06/21/20 12:26 - END OF NOTE Assessment/Plan (1) Confusion Current Visit: Yes Status: Acute Assessment & Plan: Abnormal Lab Results 06/21/20 06/21/20 Range/Units 15:02 15:46 pO2 72 L (75-100) mmHg Base Excess 3.1 H (-2.0-2.0) O2 Saturation 92.9 L (94-100) g/dF ABG pH 7.46 H (7.35-7.45) Methemoglobin 0.9 L (1.4-1.5) % Ammonia < 9 L (9-30) umol/L Code(s): R41.0 - DISORIENTATION, UNSPECIFIED (2) Emphysema lung Current Visit: Yes Status: Acute Code(s): J43.9 - EMPHYSEMA, UNSPECIFIED (3) Generalized weakness Current Visit: Yes Status: Acute Code(s): R53.1 - WEAKNESS (4) Old cerebrovascular accident (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 (5) UTI (urinary tract infection) Current Visit: Yes Status: Acute Code(s): N39.0 - URINARY TRACT INFECTION, SITE NOT SPECIFIED
[2020-06-22] MEDS ORDERED: Sodium Chloride 0.9% 100 ML IVPB 100 ML IV ONE (16:56)
[2020-06-22] MEDS ORDERED: Sodium Chloride 0.9% 1000 ML 1,000 ML IV STA (17:40)
[2020-06-22 19:07] LABS: Hematocrit 28.7 % (42-50); Hemoglobin 9.1 gm/dl (12.5-18.0); Mean Cell Volume 99.7 fl (78-100); Mean Corpuscular Hemoglobin 31.6 pg (26-32); Mean Corpuscular Hgb Concent. 31.7 g/dl (32-36); Mean Platelet Volume 8.6 fl (7.5-11.0); Platelet Count 238 K/mm3 (150-450); Red Blood Count 2.88 M/mm3 (4.1-5.6); Red Cell Distribution Width 13.3 % (11.5-14.0); White Blood Count 8.4 K/mm3 (4.0-10.5)
[2020-06-22 19:21] LABS: ALBUMIN 2.6 g/dL (3.5-5.0); ALKALINE PHOSPHATASE 91 U/L (38-126); ANION GAP 7.6 MEQ/L (5-15); BLOOD UREA NITROGEN 19 mg/dL (9-20); CHLORIDE 109 mmol/L (98-107); Calcium 8.1 mg/dL (8.4-10.2); Carbon Dioxide 27 mmol/L (22-30); Creatinine 1 0.89 mg/dL (0.66-1.25); EST GLOMERULAR FILTRATION RATE > 60.0 ML/MIN; Glucose 138 mg/dL (74-106); Potassium 4.1 mmol/L (3.5-5.1); SGOT/AST 37 U/L (17-59); SGPT/ALT 24 U/L (0-50); SODIUM 140 mmol/L (137-145); Total Protein 5.9 g/dL (6.3-8.2)
[2020-06-22] MEDS: ROCEPHIN 1 Gm-D5w 50 ml Bag** 1 G/50 ML IVPB IV SCH (22:43)
[2020-06-23] MEDS: Sodium Chloride 0.9% 1000 ML 1,000 ML IV SCH ×2 (05:57→15:33)
--- NOTE | 2020-06-23 11:24 | PCM.NOTE ---
Date and Time: 06/23/20 1123 Subjective Assessment: doing ok - Review of Systems Constitutional: No Fever, No Chills Eyes: No Symptoms Ears, Nose, & Throat: No Symptoms Respiratory: No Cough, No Short Of Breath Cardiac: No Chest Pain, No Edema, No Syncope Abdominal/Gastrointestinal: No Abdominal Pain, No Nausea, No Vomiting, No Diarrhea Genitourinary Symptoms: No Dysuria Musculoskeletal: No Back Pain, No Neck Pain Skin: No Rash Neurological: No Dizziness, No Focal Weakness, No Sensory Changes Psychological: No Symptoms Endocrine: No Symptoms Hematologic/Lymphatic: No Symptoms Immunological/Allergic: No Symptoms Objective Exam General Appearance: no apparent distress, alert Neurologic Exam: alert, oriented x 3, cooperative, normal mood/affect, nml cerebellar function, sensation nml, No motor deficits Skin Exam: normal color, warm, dry Eye Exam: PERRL, EOMI, eyes nml inspection Ears, Nose, Throat Exam: normal ENT inspection, pharynx normal, moist mucous membranes Neck Exam: normal inspection, non-tender, supple, full range of motion Respiratory Exam: normal breath sounds, lungs clear, No respiratory distress Cardiovascular Exam: regular rate/rhythm, normal heart sounds Gastrointestinal/Abdomen Exam: soft, No tenderness, No mass Extremity Exam: normal inspection, normal range of motion Back Exam: normal inspection, normal range of motion, No CVA tenderness, No vertebral tenderness Male Genitalia Exam: deferred Rectal Exam: deferred OBJECTIVE DATA Vital Signs: Vital Signs - 24 hr Temp Pulse Resp BP Pulse Ox 06/23/20 08:00 98.8 F 83 18 159/74 93 L 06/23/20 04:00 99.4 F 84 20 158/71 93 L 06/22/20 23:51 98.2 F 81 20 154/79 96 06/22/20 20:11 98.1 F 85 17 161/71 95 06/22/20 15:35 99.1 F 85 21 149/58 92 L 06/22/20 12:00 98.8 F 91 H 17 146/75 96 Pain Assessment - Last Documented Pain Intensity 0 Intake and Output: Intake & Output 06/20/20 06/21/20 06/22/20 06/23/20 11:59 11:59 11:59 11:59 Intake Total 381 1737 5782 Output Total 350 900 900 Balance 31 1187 1792 Weight 62.5 kg Lab Results: Lab Results-Last 24 Hours 06/22/20 06/22/20 Range/Units 18:50 18:50 WBC 8.4 (4.0-10.5) K/mm3 RBC 2.88 L (4.1-5.6) M/mm3 Hgb 9.1 L (12.5-18.0) gm/dl Hct 28.7 L (42-50) % MCV 99.7 (78-100) fl MCH 31.6 (26-32) pg MCHC 31.7 L (32-36) g/dl RDW 13.3 (11.5-14.0) % Plt Count 238 (150-450) K/mm3 MPV 8.6 (7.5-11.0) fl Sodium 140 (137-145) mmol/L Potassium 4.1 (3.5-5.1) mmol/L Chloride 109 H (98-107) mmol/L Carbon Dioxide 27 (22-30) mmol/L Anion Gap 7.6 (5-15) MEQ/L BUN 19 (9-20) mg/dL Creatinine 0.89 (0.66-1.25) mg/dL Estimated GFR > 60.0 ML/MIN Glucose 138 H (74-106) mg/dL Calcium 8.1 L (8.4-10.2) mg/dL Total Bilirubin 0.70 (0.2-1.3) mg/dL AST 37 (17-59) U/L ALT 24 (0-50) U/L Alkaline Phosphatase 91 (38-126) U/L Serum Total Protein 5.9 L (6.3-8.2) g/dL Albumin 2.6 L (3.5-5.0) g/dL Multi-Disciplinary Progress Notes: Multi-Disciplinary Progress Notes 06/23/20 09:32 Case Management Note by Umu Rubio CALLED OR TO CHECK ON BED AGAIN- STILL NO BED AT THIS TIME Initialized on 06/23/20 09:32 - END OF NOTE 06/22/20 14:07 Case Management Note by Umu Rubio S/W [facility]- UNSURE IF THEY HAVE A BED YET. THEY WILL CALL BACK AND ASK FOR DAJUAN Initialized on 06/22/20 14:07 - END OF NOTE 06/22/20 13:44 Case Management Note by Umu Rubio ORDER TO TRANSFER TO OR AND PROGRESS NOTE FROM TODAY FAXED TO OR FOR REVIEW Initialized on 06/22/20 13:44 - END OF NOTE 06/22/20 11:31 Case Management Note by Umu Rubio ASKED DR. RIVAS ABOUT INDICATION FOR COVID TEST- HE CANCELLED ORDER FOR COVID TEST STILL WAITING FOR BED AT OR HOSPITAL AT THIS TIME Initialized on 06/22/20 11:31 - END OF NOTE Assessment/Plan (1) UTI (urinary tract infection) Current Visit: Yes Status: Acute Qualifiers: Urinary tract infection type: acute pyelonephritis Qualified Code(s): N10 - Acute pyelonephritis Assessment & Plan: Chief Complaint Diagnosis LETHARGY, CONFUSION Allergies Allergy/AdvReac Type Severity Reaction Status Date / Time No Known Drug Allergies Allergy Unverified 06/20/20 14:46 Vital Signs (Last 24 hours) Temp Pulse Resp BP Pulse Ox 06/23/20 08:00 98.8 F 83 18 159/74 93 L 06/23/20 04:00 99.4 F 84 20 158/71 93 L 06/22/20 23:51 98.2 F 81 20 154/79 96 06/22/20 20:11 98.1 F 85 17 161/71 95 06/22/20 15:35 99.1 F 85 21 149/58 92 L 06/22/20 12:00 98.8 F 91 H 17 146/75 96 Home Medications Medication Instructions Recorded Confirmed Last Taken Type Ixekizumab [Taltz Autoinjector] 1 ea SQ Q30D 06/20/20 06/20/20 Unknown History Current Medications Generic Name Dose Route Start Last Admin Trade Name Freq PRN Reason Stop Dose Admin Sodium Chloride 1,000 mls @ 100 mls/hr 06/20/20 21:06 06/23/20 05:57 Sodium Chloride 0.9% 1000 Ml IV 07/20/20 21:05 100 mls/hr .Q10H CARMEN Administration Ceftriaxone Sodium/Dextrose 1 g in 50 mls @ 100 mls/hr 06/21/20 22:00 06/22/20 22:43 Rocephin 1 Gm-D5w 50 Ml Bag IV 07/21/20 21:59 100 mls/hr QPM CARMEN Administration Miscellaneous Information 1 each 06/21/20 12:45 Medication Intervention MC 07/21/20 12:44 .RN TO CHECK ON CARMEN Discontinued Medications Generic Name Dose Route Start Last Admin Trade Name Qamar PRN Reason Stop Dose Admin Sodium Chloride 1,000 mls @ 50 mls/hr 06/20/20 15:00 06/22/20 06:16 Sodium Chloride 0.9% 1000 Ml IV 07/20/20 14:59 50 mls/hr .Q20H CARMEN Administration Ceftriaxone Sodium/Dextrose 1 g in 50 mls @ 100 mls/hr 06/20/20 22:37 06/20/20 22:40 Rocephin 1 Gm-D5w 50 Ml Bag IV 06/20/20 23:06 100 mls/hr ONCE ONE Administration Sodium Chloride 100 mls @ 100 mls/hr 06/22/20 16:56 Sodium Chloride 0.9% 100 Ml Ivpb IV 06/22/20 17:55 .Q1H ONE Sodium Chloride 1,000 mls @ 999 mls/hr 06/22/20 17:40 06/22/20 17:41 Sodium Chloride 0.9% 1000 Ml IV 06/22/20 18:40 999 mls/hr .Q1H1M STA Administration Intake & Output (Last 24 hours) 06/20/20 06/21/20 06/22/20 06/23/20 11:59 11:59 11:59 11:59 Intake Total 381 2087 2692 Output Total 350 900 900 Balance 31 1187 1792 Weight 62.5 kg Microbiology Results (Last 24 hours) 06/20/20 15:26 Urine, Void Urine Culture - Final NO GROWTH Laboratory Results (Last 24 hours) 06/22/20 06/22/20 18:50 18:50 WBC 8.4 RBC 2.88 L Hgb 9.1 L Hct 28.7 L MCV 99.7 MCH 31.6 MCHC 31.7 L RDW 13.3 Plt Count 238 MPV 8.6 Sodium 140 Potassium 4.1 Chloride 109 H Carbon Dioxide 27 Anion Gap 7.6 BUN 19 Creatinine 0.89 Estimated GFR > 60.0 Glucose 138 H Calcium 8.1 L Total Bilirubin 0.70 AST 37 ALT 24 Alkaline Phosphatase 91 Serum Total Protein 5.9 L Albumin 2.6 L Orders (Last 24 hours) Category Date Time Status Admission Status Change [Change to Full Admit] ROUTINE Care 06/22/20 11:44 Active CBC Routine Lab 06/22/20 18:50 Completed CMP Routine Lab 06/22/20 18:50 Completed NaCl 0.9% 1000 ml [Sodium Chloride 0.9% 1000 ML] 1,000 Med 06/22/20 17:40 Discontinued ml IV 999 mls/hr NaCl 0.9% 100Ml [Sodium Chloride 0.9% 100 ML IVPB] 100 Med 06/22/20 16:56 Discontinued ml IV 100 mls/hr Patient Care Notes (Last 24 hours) 06/23/20 09:32 Case Management Note by [facility] STILL NO BED AT THIS TIME Initialized on 06/23/20 09:32 - END OF NOTE 06/22/20 23:00 Nursing Note by Brennon Cantrell provided patient with turkey sandwhich and snacks at this time. patient ate all of his sandwhich. patient awake having conversation with contract writer at this time. Initialized on 06/22/20 23:00 - END OF NOTE 06/22/20 17:45 Nursing Note by Dajuan Moser ATTEMPTED TO FEED PT HE DID AROUSE MORE THAN EARLIER IN DAY WAS ABLE TO STATE HIS NAME AND ADDRESS WAS DISORIENTED TO PLACE AND TIME. PT STATES HE IS VERY TIRED AND DOES NOT WISH TO EAT AT THIS TIME. Initialized on 06/22/20 17:45 - END OF NOTE 06/22/20 17:26 Nursing Note by Dajuan Moser PT URINE OUTPUT FOR DAY WAS 350 OVER 7 HOU[address] AND [address] RIVAS CALLED AND ORDER FOR 1L NS BOLUS RECEIVED. Initialized on 06/22/20 17:26 - END OF NOTE 06/22/20 14:07 Case Management Note by Umu Rubio [facility]- UNSURE IF THEY HAVE A BED YET. THEY WILL CALL BACK AND ASK FOR DAJUAN Initialized on 06/22/20 14:07 - END OF NOTE 06/22/20 13:44 Case Management Note by Umu Rubio ORDER TO TRANSFER TO OR AND PROGRESS NOTE FROM TODAY FAXED TO OR FOR REVIEW Initialized on 06/22/20 13:44 - END OF NOTE 06/22/20 11:31 Case Management Note by Umu Rubio ASKED DR. RIVAS ABOUT INDICATION FOR COVID TEST- HE CANCELLED ORDER FOR COVID TEST STILL WAITING FOR BED AT OR HOSPITAL AT THIS TIME Initialized on 06/22/20 11:31 - END OF NOTE Code(s): N39.0 - URINARY TRACT INFECTION, SITE NOT SPECIFIED (2) Generalized weakness Current Visit: Yes Status: Acute Code(s): R53.1 - WEAKNESS (3) Confusion Current Visit: Yes Status: Acute Code(s): R41.0 - DISORIENTATION, UNSPECIFIED (4) Emphysema lung Current Visit: Yes Status: Acute Code(s): J43.9 - EMPHYSEMA, UNSPECIFIED (5) Old cerebrovascular accident (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
[2020-06-23] MEDS: TYLENOL 325 MG PO PRN (20:14)
[2020-06-23] MEDS: ROCEPHIN 1 Gm-D5w 50 ml Bag** 1 G/50 ML IVPB IV SCH (21:55)
[2020-06-24] MEDS: Sodium Chloride 0.9% 1000 ML 1,000 ML IV SCH ×2 (01:09→16:00)
--- NOTE | 2020-06-24 11:31 | PCM.NOTE ---
Date and Time: 06/24/20 1130 Subjective Assessment: doing better - Review of Systems Constitutional: No Fever, No Chills Eyes: No Symptoms Ears, Nose, & Throat: No Symptoms Respiratory: No Cough, No Short Of Breath Cardiac: No Chest Pain, No Edema, No Syncope Abdominal/Gastrointestinal: No Abdominal Pain, No Nausea, No Vomiting, No Diarrhea Genitourinary Symptoms: No Dysuria Musculoskeletal: No Back Pain, No Neck Pain Skin: No Rash Neurological: No Dizziness, No Focal Weakness, No Sensory Changes Psychological: No Symptoms Endocrine: No Symptoms Hematologic/Lymphatic: No Symptoms Immunological/Allergic: No Symptoms Objective Exam General Appearance: no apparent distress, alert Neurologic Exam: alert, oriented x 3, cooperative, normal mood/affect, nml cerebellar function, sensation nml, No motor deficits Skin Exam: normal color, warm, dry Eye Exam: PERRL, EOMI, eyes nml inspection Ears, Nose, Throat Exam: normal ENT inspection, pharynx normal, moist mucous membranes Neck Exam: normal inspection, non-tender, supple, full range of motion Respiratory Exam: normal breath sounds, lungs clear, No respiratory distress Cardiovascular Exam: regular rate/rhythm, normal heart sounds Gastrointestinal/Abdomen Exam: soft, No tenderness, No mass Extremity Exam: normal inspection, normal range of motion Back Exam: normal inspection, normal range of motion, No CVA tenderness, No vertebral tenderness Male Genitalia Exam: deferred Rectal Exam: deferred OBJECTIVE DATA Vital Signs: Vital Signs - 24 hr Temp Pulse Resp BP Pulse Ox 06/24/20 07:50 98.5 F 70 20 138/59 93 L 06/24/20 04:00 97.8 F 70 22 174/76 96 06/24/20 00:00 98.5 F 83 24 135/66 93 L 06/23/20 20:00 102.7 F 97 H 24 142/63 94 L 06/23/20 17:57 99.9 F 81 16 161/74 94 L 06/23/20 12:00 98.5 F 72 16 139/66 95 Pain Assessment - Last Documented Pain Intensity 0 Intake and Output: Intake & Output 06/21/20 06/22/20 06/23/20 06/24/20 11:59 11:59 11:59 11:59 Intake Total 381 4364 8882 2768 Output Total 350 224 227 8995 Balance 31 1187 1792 1618 Weight 62.5 kg Lab Results: Lab Results-Last 24 Hours 06/23/20 06/23/20 Range/Units 00:00 15:28 Lactic Acid 0.8 (0.4-2.0) TSH 3rd Generation 0.974 (0.47-4.68) mIU/L Multi-Disciplinary Progress Notes: Multi-Disciplinary Progress Notes 06/24/20 09:50 Case Management Note by Umu Rubio [place] STILL HAS NO BEDS THIS AM Initialized on 06/24/20 09:50 - END OF NOTE 06/23/20 15:06 Case Management Note by Charlene Berg TRIED TO CALL BED CONTROL AT [facility] FOR UPDATE ON BED STATUS. NO ANSWER. LEFT VOICEMAIL. AWAIT CALL BACK. Initialized on 06/23/20 15:06 - END OF NOTE Assessment/Plan (1) UTI (urinary tract infection) Current Visit: Yes Status: Resolved Qualifiers: Urinary tract infection type: acute pyelonephritis Qualified Code(s): N10 - Acute pyelonephritis Assessment & Plan: Chief Complaint Diagnosis LETHARGY, CONFUSION Allergies Allergy/AdvReac Type Severity Reaction Status Date / Time No Known Drug Allergies Allergy Unverified 06/20/20 14:46 Vital Signs (Last 24 hours) Temp Pulse Resp BP Pulse Ox 06/24/20 07:50 98.5 F 70 20 138/59 93 L 06/24/20 04:00 97.8 F 70 22 174/76 96 06/24/20 00:00 98.5 F 83 24 135/66 93 L 06/23/20 20:00 102.7 F 97 H 24 142/63 94 L 06/23/20 17:57 99.9 F 81 16 161/74 94 L 06/23/20 12:00 98.5 F 72 16 139/66 95 Home Medications Medication Instructions Recorded Confirmed Last Taken Type Ixekizumab [Taltz Autoinjector] 1 ea SQ Q30D 06/20/20 06/20/20 Unknown History Current Medications Generic Name Dose Route Start Last Admin Trade Name Freq PRN Reason Stop Dose Admin Acetaminophen 650 mg 06/23/20 18:36 06/23/20 20:14 Tylenol 325 Mg PO 07/23/20 18:35 650 mg Q4H PRN PRN Administration PAIN AND/OR FEVER Sodium Chloride 1,000 mls @ 100 mls/hr 06/20/20 21:06 06/24/20 01:09 Sodium Chloride 0.9% 1000 Ml IV 07/20/20 21:05 100 mls/hr .Q10H CARMEN Administration Ceftriaxone Sodium/Dextrose 1 g in 50 mls @ 100 mls/hr 06/21/20 22:00 06/23/20 21:55 Rocephin 1 Gm-D5w 50 Ml Bag IV 07/21/20 21:59 100 mls/hr QPM CARMEN Administration Miscellaneous Information 1 each 06/21/20 12:45 Medication Intervention MC 07/21/20 12:44 .RN TO CHECK ON CARMEN Discontinued Medications Generic Name Dose Route Start Last Admin Trade Name Freq PRN Reason Stop Dose Admin Sodium Chloride 1,000 mls @ 50 mls/hr 06/20/20 15:00 06/22/20 06:16 Sodium Chloride 0.9% 1000 Ml IV 07/20/20 14:59 50 mls/hr .Q20H CARMEN Administration Ceftriaxone Sodium/Dextrose 1 g in 50 mls @ 100 mls/hr 06/20/20 22:37 06/20/20 22:40 Rocephin 1 Gm-D5w 50 Ml Bag IV 06/20/20 23:06 100 mls/hr ONCE ONE Administration Sodium Chloride 100 mls @ 100 mls/hr 06/22/20 16:56 Sodium Chloride 0.9% 100 Ml Ivpb IV 06/22/20 17:55 .Q1H ONE Sodium Chloride 1,000 mls @ 999 mls/hr 06/22/20 17:40 06/22/20 17:41 Sodium Chloride 0.9% 1000 Ml IV 06/22/20 18:40 999 mls/hr .Q1H1M STA Administration Intake & Output (Last 24 hours) 06/21/20 06/22/20 06/23/20 06/24/20 11:59 11:59 11:59 11:59 Intake Total 381 2087 2692 2768 Output Total 350 462 217 2050 Balance 31 1187 1792 1618 Weight 62.5 kg Laboratory Results (Last 24 hours) 06/23/20 06/23/20 15:28 00:00 Lactic Acid 0.8 TSH 3rd Generation 0.974 Orders (Last 24 hours) Category Date Time Status Lactic Acid Urgent Lab 06/23/20 15:28 Completed Acetaminophen 325 mg [Tylenol 325 mg] Med 06/23/20 18:36 Active 650 mg PO Q4H PRN PRN Patient Care Notes (Last 24 hours) 06/24/20 09:50 Case Management Note by Umu Rubio [place] STILL HAS NO BEDS THIS AM Initialized on 06/24/20 09:50 - END OF NOTE 06/24/20 05:07 Nursing Note by Brennon Cantrell PATIENT PULLED OUT IV. BUTTON GRADER AND DAHLIA RN LOOKED TO START A NEW IV BUT COULD NOT FIND ANYTHING. WILL TELL DAY SHIFT AND SEE IF THEY CAN FIND VEIN TO START NEW IV. Initialized on 06/24/20 05:07 - END OF NOTE 06/23/20 23:22 Nursing Note by Brennon Cantrell patient woke up and stated he was hungry. patient consumed tenderloin sandwich from dinner that commercial real estate underwriter heated up. Initialized on 06/23/20 23:22 - END OF NOTE 06/23/20 16:44 Nursing Note by Kathie Carrera DR HERE, DISCUSSED PT AND HEAD CT SUGGEST HEAD MRI, STATES NONE NEEDED. WAIT AND CONTINUE [facility] FOR [facility]. Initialized on 06/23/20 16:44 - END OF NOTE 06/23/20 15:06 Case Management Note by Charlene Berg TRIED TO CALL BED CONTROL AT [facility] FOR UPDATE ON BED STATUS. NO ANSWER. LEFT VOICEMAIL. AWAIT CALL BACK. Initialized on 06/23/20 15:06 - END OF NOTE Code(s): N39.0 - URINARY TRACT INFECTION, SITE NOT SPECIFIED (2) Generalized weakness Current Visit: Yes Status: Acute Code(s): R53.1 - WEAKNESS (3) Confusion Current Visit: Yes Status: Acute Code(s): R41.0 - DISORIENTATION, UNSPECIFIED (4) Emphysema lung Current Visit: Yes Status: Acute Code(s): J43.9 - EMPHYSEMA, UNSPECIFIED (5) Old cerebrovascular accident (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
[2020-06-24 13:36] LABS: Hematocrit 28.2 % (42-50); Hemoglobin 8.9 gm/dl (12.5-18.0); Mean Cell Volume 99.3 fl (78-100); Mean Corpuscular Hemoglobin 31.3 pg (26-32); Mean Corpuscular Hgb Concent. 31.6 g/dl (32-36); Mean Platelet Volume 8.8 fl (7.5-11.0); Platelet Count 264 K/mm3 (150-450); Red Blood Count 2.84 M/mm3 (4.1-5.6); Red Cell Distribution Width 13.1 % (11.5-14.0); White Blood Count 7.3 K/mm3 (4.0-10.5)
[2020-06-24 14:01] LABS: ALBUMIN 2.6 g/dL (3.5-5.0); ALKALINE PHOSPHATASE 100 U/L (38-126); ANION GAP 8.1 MEQ/L (5-15); BLOOD UREA NITROGEN 16 mg/dL (9-20); CHLORIDE 104 mmol/L (98-107); Calcium 8.3 mg/dL (8.4-10.2); Carbon Dioxide 27 mmol/L (22-30); EST GLOMERULAR FILTRATION RATE > 60.0 ML/MIN; Glucose 127 mg/dL (74-106); Potassium 3.7 mmol/L (3.5-5.1); SGOT/AST 51 U/L (17-59); SGPT/ALT 34 U/L (0-50); SODIUM 136 mmol/L (137-145); Total Protein 5.8 g/dL (6.3-8.2)
[2020-06-24] MEDS: ROCEPHIN 1 Gm-D5w 50 ml Bag** 1 G/50 ML IVPB IV SCH (22:27)
[2020-06-25] MEDS: TYLENOL 325 MG PO PRN (00:09)
[2020-06-25] MEDS: Sodium Chloride 0.9% 1000 ML 1,000 ML IV SCH ×2 (01:54→10:14)
[2020-06-25 07:04] LABS: ALBUMIN 2.3 g/dL (3.5-5.0); ALKALINE PHOSPHATASE 90 U/L (38-126); ANION GAP 7.7 MEQ/L (5-15); BLOOD UREA NITROGEN 14 mg/dL (9-20); CHLORIDE 105 mmol/L (98-107); Calcium 7.8 mg/dL (8.4-10.2); Carbon Dioxide 25 mmol/L (22-30); Creatinine 1 0.86 mg/dL (0.66-1.25); EST GLOMERULAR FILTRATION RATE > 60.0 ML/MIN; Potassium 3.4 mmol/L (3.5-5.1); SODIUM 134 mmol/L (137-145); Total Protein 5.1 g/dL (6.3-8.2)
[2020-06-25 07:05] LABS: Glucose 107 mg/dL (74-106); SGOT/AST 61 U/L (17-59); SGPT/ALT 36 U/L (0-50)
[2020-06-25 07:13] LABS: Hematocrit 25.7 % (42-50); Hemoglobin 8.3 gm/dl (12.5-18.0); Mean Cell Volume 97.7 fl (78-100); Mean Corpuscular Hemoglobin 31.6 pg (26-32); Mean Corpuscular Hgb Concent. 32.3 g/dl (32-36); Mean Platelet Volume 9.5 fl (7.5-11.0); Platelet Count 227 K/mm3 (150-450); Red Blood Count 2.63 M/mm3 (4.1-5.6); Red Cell Distribution Width 13.1 % (11.5-14.0); White Blood Count 6.1 K/mm3 (4.0-10.5)
--- NOTE | 2020-06-25 09:04 | PCM.NOTE ---
Date and Time: 06/25/20857 Subjective Assessment: Pt. without complaints this am, confused on year, but following commands to questioning today. Pt having \tele neurology visit here shortly, MS reportedly has been up and down with today being relatively good. Pt. with history of intermittent dementia like symptoms. Pt. has had a declining appetite since admission - Review of Systems Constitutional: Fever Eyes: No Symptoms Ears, Nose, & Throat: No Symptoms Respiratory: No Cough, No Short Of Breath Cardiac: No Chest Pain, No Edema, No Syncope Abdominal/Gastrointestinal: No Abdominal Pain, No Nausea, No Vomiting, No Diarrhea Musculoskeletal: No Back Pain, No Neck Pain Skin: No Rash Psychological: Memory Loss Objective Exam General Appearance: no apparent distress Neurologic Exam: alert, cooperative Skin Exam: normal color, warm, dry Eye Exam: PERRL, EOMI Ears, Nose, Throat Exam: normal ENT inspection Neck Exam: normal inspection, non-tender, supple Respiratory Exam: normal breath sounds, lungs clear Cardiovascular Exam: regular rate/rhythm, normal heart sounds Gastrointestinal/Abdomen Exam: soft, normal bowel sounds Extremity Exam: normal inspection OBJECTIVE DATA Vital Signs: Vital Signs - 24 hr Temp Pulse Resp BP Pulse Ox 06/25/20 07:29 99.3 F 77 18 166/70 96 06/25/20 04:00 100 F 88 20 146/70 100 06/25/20 00:00 98.9 F 101 H 24 141/63 91 L 06/24/20 20:00 101.4 F 94 H 28 H 154/68 90 L 06/24/20 16:00 99.1 F 90 20 141/72 95 06/24/20 11:56 98.4 F 99 H 24 135/69 96 Oxygen-Last 24 hours Oxygen Flowrate (L/min)-RT 4 Pain Assessment - Last Documented Pain Intensity 0 Intake and Output: Intake & Output 06/22/20 06/23/20 06/24/20 06/25/20 11:59 11:59 11:59 11:59 Intake Total 2087 2692 2768 1261 Output Total 846 032 0183 1250 Balance 1187 1792 1618 11 Lab Results: Lab Results-Last 24 Hours 06/24/20 06/24/20 06/25/20 Range/Units 13:30 13:30 05:00 WBC 7.3 6.1 (4.0-10.5) K/mm3 RBC 2.84 L 2.63 L (4.1-5.6) M/mm3 Hgb 8.9 L 8.3 L (12.5-18.0) gm/dl Hct 28.2 L 25.7 L (42-50) % MCV 99.3 97.7 (78-100) fl MCH 31.3 31.6 (26-32) pg MCHC 31.6 L 32.3 (32-36) g/dl RDW 13.1 13.1 (11.5-14.0) % Plt Count 264 227 (150-450) K/mm3 MPV 8.8 9.5 (7.5-11.0) fl Sodium 136 L (137-145) mmol/L Potassium 3.7 (3.5-5.1) mmol/L Chloride 104 (98-107) mmol/L Carbon Dioxide 27 (22-30) mmol/L Anion Gap 8.1 (5-15) MEQ/L BUN 16 (9-20) mg/dL Creatinine 0.90 (0.66-1.25) mg/dL Estimated GFR > 60.0 ML/MIN Glucose 127 H (74-106) mg/dL Calcium 8.3 L (8.4-10.2) mg/dL Total Bilirubin 0.60 (0.2-1.3) mg/dL AST 51 (17-59) U/L ALT 34 (0-50) U/L Alkaline Phosphatase 100 (38-126) U/L Serum Total Protein 5.8 L (6.3-8.2) g/dL Albumin 2.6 L (3.5-5.0) g/dL 06/25/20 Range/Units 05:00 WBC (4.0-10.5) K/mm3 RBC (4.1-5.6) M/mm3 Hgb (12.5-18.0) gm/dl Hct (42-50) % MCV (78-100) fl MCH (26-32) pg MCHC (32-36) g/dl RDW (11.5-14.0) % Plt Count (150-450) K/mm3 MPV (7.5-11.0) fl Sodium 134 L (137-145) mmol/L Potassium 3.4 L (3.5-5.1) mmol/L Chloride 105 (98-107) mmol/L Carbon Dioxide 25 (22-30) mmol/L Anion Gap 7.7 (5-15) MEQ/L BUN 14 (9-20) mg/dL Creatinine 0.86 (0.66-1.25) mg/dL Estimated GFR > 60.0 ML/MIN Glucose 107 H (74-106) mg/dL Calcium 7.8 L (8.4-10.2) mg/dL Total Bilirubin 0.60 (0.2-1.3) mg/dL AST 61 H (17-59) U/L ALT 36 (0-50) U/L Alkaline Phosphatase 90 (38-126) U/L Serum Total Protein 5.1 L (6.3-8.2) g/dL Albumin 2.3 L (3.5-5.0) g/dL Multi-Disciplinary Progress Notes: Multi-Disciplinary Progress Notes 06/24/20 15:15 Case Management Note by Umu Rubio/Sara - SHE WOULD STILL LIKE TO TAKE PATIENT HOME AT TIME OF DC EVEN IF PATIENT HAS SOME MINOR CONFUSION BUT HE MUST BE ABLE TO STAND AND WALK. DC PLANNING WILL CONTINUE TO FOLLOW. PATIENT MAY NEED ECF PLACEMENT IF PATIENT DOES NOT IMPROVE Initialized on 06/24/20 15:15 - END OF NOTE 06/24/20 15:14 Case Management Note by Umu Rubio/Sara RIVAS ABOUT CONCERN FOR CONT'D CONFUSION- NEW ORDER FOR TELE- NEUROLOGY. WARDCLERK NOTIFIED Initialized on 06/24/20 15:14 - END OF NOTE 06/24/20 09:50 Case Management Note by Umu Rubio [place] STILL HAS NO BEDS THIS AM Initialized on 06/24/20 09:50 - END OF NOTE Assessment/Plan (1) Confusion Current Visit: Yes Status: Acute Assessment & Plan: tele-neurology visit today Code(s): R41.0 - DISORIENTATION, UNSPECIFIED (2) UTI (urinary tract infection) Current Visit: Yes Status: Resolved Qualifiers: Urinary tract infection type: acute pyelonephritis Qualified Code(s): N10 - Acute pyelonephritis Assessment & Plan: continue antibiotic, will add for additional coverage Code(s): N39.0 - URINARY TRACT INFECTION, SITE NOT SPECIFIED
[2020-06-25] MEDS: ECOTRIN 81 MG PO SCH (10:14)
[2020-06-25] MEDS: Klor Con 10 MEQ PO ONE (10:14)
[2020-06-25] MEDS ORDERED: POTASSIUM CHLORIDE 20 mEq IN WATER 100ML 20 MEQ/100 ML BAG IV ONE (10:30)
[2020-06-25] MEDS: ASPIRIN 600 MG PR SCH (10:59)
[2020-06-25 11:53] LABS: TIBC 141 ug/dL (261-497)
[2020-06-25 12:17] LABS: Iron < 10 ug/dL (49-181)
[2020-06-25 14:27] LABS: Folate (Folic Acid) 5.39 ng/mL (2.76 - >20)
[2020-06-25] MEDS: ROCEPHIN 1 Gm-D5w 50 ml Bag** 1 G/50 ML IVPB IV SCH (22:15)
[2020-06-25] MEDS: LIPITOR 40MG PO SCH (22:15)
[2020-06-26] MEDS: TYLENOL 325 MG PO PRN (01:19)
[2020-06-26 05:09] LABS: Hematocrit 25.3 % (42-50); Hemoglobin 8.2 gm/dl (12.5-18.0); Mean Cell Volume 97.3 fl (78-100); Mean Corpuscular Hemoglobin 31.5 pg (26-32); Mean Corpuscular Hgb Concent. 32.4 g/dl (32-36); Mean Platelet Volume 9.4 fl (7.5-11.0); Platelet Count 216 K/mm3 (150-450); White Blood Count 5.9 K/mm3 (4.0-10.5)
[2020-06-26 05:27] LABS: BLOOD UREA NITROGEN 13 mg/dL (9-20); CHLORIDE 103 mmol/L (98-107); Calcium 7.7 mg/dL (8.4-10.2); Carbon Dioxide 24 mmol/L (22-30); Creatinine 1 0.84 mg/dL (0.66-1.25); EST GLOMERULAR FILTRATION RATE > 60.0 ML/MIN; Glucose 108 mg/dL (74-106); Potassium 3.6 mmol/L (3.5-5.1); SODIUM 131 mmol/L (137-145)
[2020-06-26] MEDS: Sodium Chloride 0.9% 1000 ML 1,000 ML IV SCH ×2 (07:26→16:59)
[2020-06-26] MEDS: ASPIRIN 600 MG PR SCH (09:33)
--- NOTE | 2020-06-26 10:49 | PCM.NOTE ---
Date and Time: 06/26/20 1045 Subjective Assessment: Pt uncooperative today, MRI tomorrow as recommended by teleneuro. Pt. otherwise with no changes, mild fe deficiency noted, will add fe supplementation. - Review of Systems Constitutional: No Symptoms Respiratory: No Symptoms Cardiac: No Symptoms Abdominal/Gastrointestinal: No Symptoms Genitourinary Symptoms: No Symptoms Objective Exam General Appearance: no apparent distress Neurologic Exam: uncooperative Skin Exam: normal color, warm, dry Eye Exam: EOMI Neck Exam: normal inspection Respiratory Exam: normal breath sounds Cardiovascular Exam: regular rate/rhythm OBJECTIVE DATA Vital Signs: Vital Signs - 24 hr Temp Pulse Resp BP Pulse Ox 06/26/20 07:22 99.0 F 77 26 H 170/85 96 06/26/20 04:00 99.5 F 85 16 131/62 93 L 06/26/20 00:00 100.4 F 93 H 20 144/65 97 06/25/20 20:00 100.3 F 92 H 28 H 155/73 94 L 06/25/20 16:00 98.9 F 91 H 23 165/72 97 06/25/20 12:00 99.0 F 75 22 149/76 95 Pain Assessment - Last Documented Pain Intensity 0 Intake and Output: Intake & Output 06/23/20 06/24/20 06/25/20 06/26/20 11:59 11:59 11:59 11:59 Intake Total 2692 2768 1281 4024 Output Total 900 1150 1250 1200 Balance 1792 1618 31 2824 Lab Results: Lab Results-Last 24 Hours 06/25/20 06/25/20 06/25/20 Range/Units 05:00 09:46 09:46 WBC (4.0-10.5) K/mm3 RBC (4.1-5.6) M/mm3 Hgb (12.5-18.0) gm/dl Hct (42-50) % MCV (78-100) fl MCH (26-32) pg MCHC (32-36) g/dl RDW (11.5-14.0) % Plt Count (150-450) K/mm3 MPV (7.5-11.0) fl Sodium (137-145) mmol/L Potassium (3.5-5.1) mmol/L Chloride (98-107) mmol/L Carbon Dioxide (22-30) mmol/L Anion Gap (5-15) MEQ/L BUN (9-20) mg/dL Creatinine (0.66-1.25) mg/dL Estimated GFR ML/MIN Glucose (74-106) mg/dL Calcium (8.4-10.2) mg/dL Iron < 10 L (49-181) ug/dL TIBC 141 L (261-497) ug/dL Vitamin B12 502 (239-931) pg/mL Folic Acid 5.39 (2.76 - >20) ng/mL TSH 3rd Generation 1.700 (0.47-4.68) mIU/L 06/26/20 06/26/20 Range/Units 04:58 04:58 WBC 5.9 (4.0-10.5) K/mm3 RBC 2.60 L (4.1-5.6) M/mm3 Hgb 8.2 L (12.5-18.0) gm/dl Hct 25.3 L (42-50) % MCV 97.3 (78-100) fl MCH 31.5 (26-32) pg MCHC 32.4 (32-36) g/dl RDW 13.0 (11.5-14.0) % Plt Count 216 (150-450) K/mm3 MPV 9.4 (7.5-11.0) fl Sodium 131 L (137-145) mmol/L Potassium 3.6 (3.5-5.1) mmol/L Chloride 103 (98-107) mmol/L Carbon Dioxide 24 (22-30) mmol/L Anion Gap 7.0 (5-15) MEQ/L BUN 13 (9-20) mg/dL Creatinine 0.84 (0.66-1.25) mg/dL Estimated GFR > 60.0 ML/MIN Glucose 108 H (74-106) mg/dL Calcium 7.7 L (8.4-10.2) mg/dL Iron (49-181) ug/dL TIBC (261-497) ug/dL Vitamin B12 (239-931) pg/mL Folic Acid (2.76 - >20) ng/mL TSH 3rd Generation (0.47-4.68) mIU/L Radiology Exams: Radiology Procedures Category Date Time Status MRA BRAIN WITH CONTRAST [MRI] Routine Exams 06/27/20 08:00 Ordered MRA NECK WITH CONTRAST [MRI] Routine Exams 06/27/20 08:00 Ordered MRI BRAIN W/O CONTRAST [MRI] Routine Exams 06/27/20 08:00 Ordered Assessment/Plan (1) Confusion Current Visit: Yes Status: Acute Assessment & Plan: no change, pt. most likely will need fpc placement, will place consult in case pt. mentally does not improve Code(s): R41.0 - DISORIENTATION, UNSPECIFIED (2) UTI (urinary tract infection) Current Visit: Yes Status: Resolved Qualifiers: Urinary tract infection type: acute pyelonephritis Qualified Code(s): N10 - Acute pyelonephritis Assessment & Plan: wbc normal, no change in current treatment plan Code(s): N39.0 - URINARY TRACT INFECTION, SITE NOT SPECIFIED
[2020-06-26] MEDS: FEOSOL 325 MG PO SCH ×2 (14:45→21:11)
[2020-06-26] MEDS: ECOTRIN 81 MG PO SCH (19:15)
[2020-06-26] MEDS: Klor Con 10 MEQ PO ONE (19:15)
[2020-06-26] MEDS: ROCEPHIN 1 Gm-D5w 50 ml Bag** 1 G/50 ML IVPB IV SCH (21:11)
[2020-06-26] MEDS: LIPITOR 40MG PO SCH (21:11)
[2020-06-27] MEDS: Sodium Chloride 0.9% 1000 ML 1,000 ML IV SCH ×4 (03:26→15:25)
[2020-06-27] MEDS: FEOSOL 325 MG PO SCH ×2 (08:48→20:50)
[2020-06-27] MEDS: ASPIRIN 600 MG PR SCH (08:48)
--- NOTE | 2020-06-27 13:13 | XRAY ---
Exam: MRI of the brain without IV contrast from 06/27/2020. Comparison: CT of the head without IV contrast from 06/20/2020. Indication: 80-year-old male with increased weakness and lethargy; possible stroke. Technique: Multiplanar, multisequence MRI imaging of the brain was performed without IV contrast. Findings: The diffusion weighted images reveal multifocal areas of restricted signal within the anterior aspect of the left basal ganglia involving the caudate nucleus and a portion of the lentiform nucleus. This is consistent with subacute or acute infarcts. These each measure about 1.6 cm in diameter. In addition, there is some restricted signal within the central and right posterior lateral aspect of the brainstem on images #10 through #12 of series 6, again suggesting acute or subacute brainstem infarcts. There is also a large area of restricted diffusion involving the right side of the vermis and the upper aspect of the right cerebellar hemisphere measuring a maximum of 5.4 cm x 4.4 cm in cross section. There is also a large area restricted diffusion within the inferior aspect of the left cerebellar hemisphere measuring 5.5 cm x 4.4 cm in maximum cross-section. These are consistent with bilateral cerebellar acute or subacute infarcts. The ventricles are within normal limits of size. No midline shift is seen. There is mild mass effect upon the posterior right side of the brainstem and the right side of the fourth ventricle on images #8 through #10, perhaps due to edema. There are a few scattered small punctate high signal intensities within the upper right parietal white matter which may reflect small vessel ischemic disease. The seventh and eighth cranial nerve root complexes appear unremarkable. No abnormal extracerebral fluid collection is seen. The orbits appear grossly unremarkable. There is slight deviation of the anterior aspect of the nasal septum. The visualized sinuses are grossly clear. Mild generalized cerebral cortical atrophic changes are noted. Impression: 1. The diffusion weighted images reveal significant areas of bilateral cerebellar restricted diffusion consistent with acute/subacute infarcts. I believe the infarct on the right causes slight mass effect upon the fourth ventricle. In addition, I believe there is some restricted diffusion within the mid and posterior right aspect of the brainstem as well as at least a couple moderate sized areas of restricted diffusion within the anterior left basal ganglia. These sites are consistent with subacute or acute infarcts as well. Note: I called this report to Dr. Flores at 12:35 PM on 06/27/2020.
--- NOTE | 2020-06-27 16:13 | XRAY ---
Exam: Bilateral duplex Doppler carotid ultrasound exam from 06/27/2020. Comparison: None. Indication: CVA. Findings: On the right side, I note mild concentric intimal thickening and plaque within the common carotid artery. There is moderate soft tissue plaque along both the anterior and posterior aspects of the proximal internal carotid artery and external carotid artery. The right common carotid artery is mildly tortuous. Color flow images were obtained. Peak systolic flow velocities in centimeters per second measure 98, 83, and 45 within the proximal, mid, and distal common carotid artery, 64, 119, and 129 within the proximal, mid, and distal internal carotid artery, and 125 within the distal external carotid artery. Maximum ICA to CCA peak systolic flow velocity ratio is 2.9 which is mildly increased.. The right vertebral artery reveals antegrade flow with a peak systolic flow velocity of 98 cm/s. On the left side, there is moderate anterior and mild posterior echogenic plaque within the distal common carotid artery. I also note moderate fibrous plaque within the left external carotid artery. Color flow images were obtained. Peak systolic flow velocities in centimeters per second measure 98, 92, and 71 within the proximal, mid, and distal common carotid artery, 49, 76, and 88 within the proximal, mid, and distal internal carotid artery, and 47 within the external carotid artery. Peak systolic flow velocity ratio between the left internal carotid artery and common carotid artery is 1.2. The left vertebral artery reveals antegrade flow with a peak systolic flow velocity of 25 cm/s. Impression: 1. Moderate bilateral irregular thickened plaque is seen within both common carotid arteries and internal carotid arteries. 2. Peak systolic flow velocity of 129 cm/s within the distal right internal carotid artery and peak systolic flow velocity ratio on the right are beginning to become hemodynamically significant and would suggest a stenosis of 50% to 79% diameter reduction. 3. No other findings of a hemodynamically significant stenosis is seen within either visualized carotid artery. 4. Both vertebral arteries reveal antegrade flow.
--- NOTE | 2020-06-27 18:36 | PCM.NOTE ---
Date and Time: 06/27/201832 Subjective Assessment: still very weak. unable to swollow. lethargic Objective Exam General Appearance: moderate distress, lethargy Neurologic Exam: alert, slurred speech, aphasia, abnormal cerebellar tests, No motor deficits Skin Exam: normal color, warm, dry Eye Exam: PERRL, EOMI, eyes nml inspection Ears, Nose, Throat Exam: normal ENT inspection, pharynx normal, moist mucous membranes Neck Exam: normal inspection, non-tender, supple, full range of motion Respiratory Exam: diminished breath sounds, No respiratory distress Cardiovascular Exam: regular rate/rhythm, normal heart sounds Gastrointestinal/Abdomen Exam: soft, No tenderness, No mass Extremity Exam: normal inspection, normal range of motion Back Exam: normal inspection, normal range of motion, No CVA tenderness, No vertebral tenderness Male Genitalia Exam: deferred Rectal Exam: deferred OBJECTIVE DATA Vital Signs: Vital Signs - 24 hr Temp Pulse Resp BP Pulse Ox 06/27/20 16:00 98.4 F 84 18 155/70 98 06/27/20 12:00 98.0 F 90 22 161/71 98 06/27/20 07:27 97.8 F 86 18 141/66 96 06/27/20 04:00 98.1 F 84 24 146/67 92 L 06/27/20 00:00 99.9 F 94 H 25 H 133/76 92 L 06/26/20 20:00 98.7 F 106 H 21 146/67 95 Pain Assessment - Last Documented Pain Intensity 0 Intake and Output: Intake & Output 06/25/20 06/26/20 06/27/20 06/28/20 11:59 11:59 11:59 11:59 Intake Total 1281 4024 3486 1112 Output Total 1250 1200 1200 650 Balance 31 9924 9856 462 Radiology Exams: Radiology Procedures Category Date Time Status CAROTID BILATERAL [US] Routine Exams 06/27/20 08:45 Completed MRI BRAIN W/O CONTRAST [MRI] Routine Exams 06/27/20 08:00 Completed The diffusion weighted images reveal significant areas of bilateral cerebellar restricted diffusion consistent with acute/subacute infarcts. I believe the infarct on the right causes slight mass effect upon the fourth ventricle. In addition, I believe there is some restricted diffusion within the mid and posterior right aspect of the brainstem as well as at least a couple moderate sized areas of restricted diffusion within the anterior left basal ganglia. These sites are consistent with subacute or acute infarcts as well. Multi-Disciplinary Progress Notes: Multi-Disciplinary Progress Notes 06/27/20 15:19 Case Management Note by Charlene Berg SPOKE WITH PT'S , FERNANDO. SHE IS IN AGREEMENT FOR PT TO GO TO REHAB FACILITY FOR EXTENDED REHAB. SHE PREFERS THAT PT GO TO [facility] IN [place]. CALL TO [place], AWAIT RETURN PHONE CALL. Initialized on 06/27/20 15:19 - END OF NOTE 06/27/20 11:46 Physical Therapy Note by Thalia Valencia PT. SEEN BY P.T. THIS AM TO ASSIST W/ TRANSFER TO TAKE PT. TO MRI. PT. IN BED UPON P.T. ARRIVAL TO ROOM. PT. HAD EYES CLOSED AND WAS MINIMALLY RESPONSIVE. SUPINE TO SIT MOD ASSIST X 2; PT. ABLE TO SIT ON SIDE OF BED FOR ~ 1 MIN W/ CGA. PT. PERFORMED TRANSFER TO CHAIR W/ MOD ASSIST X 2. PT. DID NOT HAVE EYES OPEN DURING TRANSFER. DID NOTE TENDENCY TO ROTATE HEAD TO RIGHT SOME L NEGLECT IS PRESENT. REHAB PROGNOSIS GUARDED AT THIS TIME UNTIL LEVEL OF AWARENESS IMPROVES. WILL CONT. PT 5X/WK TO PROGRESS INDEPENDENCE W/ FUNCTIONAL MOBILITY TOLERATED. 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 Current Visit: Yes Status: Acute Qualifiers: Laterality of affected vessel: bilateral Qualified Code(s): I63.543 - Cerebral infarction due to unspecified occlusion or stenosis of bilateral cerebellar arteries Assessment & Plan: Chief Complaint Diagnosis LETHARGY, CONFUSION Allergies Allergy/AdvReac Type Severity Reaction Status Date / Time No Known Drug Allergies Allergy Unverified 06/20/20 14:46 Vital Signs (Last 24 hours) Temp Pulse Resp BP Pulse Ox 06/27/20 16:00 98.4 F 84 18 155/70 98 06/27/20 12:00 98.0 F 90 22 161/71 98 06/27/20 07:27 97.8 F 86 18 141/66 96 06/27/20 04:00 98.1 F 84 24 146/67 92 L 06/27/20 00:00 99.9 F 94 H 25 H 133/76 92 L 06/26/20 20:00 98.7 F 106 H 21 146/67 95 Home Medications Medication Instructions Recorded Confirmed Last Taken Type Ixekizumab [Taltz Autoinjector] 1 ea SQ Q30D 06/20/20 06/20/20 Unknown History Current Medications Generic Name Dose Route Start Last Admin Trade Name Freq PRN Reason Stop Dose Admin Acetaminophen 650 mg 06/23/20 18:36 06/26/20 01:19 Tylenol 325 Mg PO 07/23/20 18:35 650 mg Q4H PRN PRN Administration PAIN AND/OR FEVER Aspirin 325 mg 06/25/20 10:00 06/27/20 08:48 Aspirin 600 Mg MD 07/25/20 09:59 Not Given DAILY CARMEN Atorvastatin Calcium 80 mg 06/25/20 20:00 06/26/20 21:11 Lipitor 40mg PO 07/25/20 19:59 80 mg 2000 CARMEN Administration Ferrous Sulfate 325 mg 06/26/20 11:15 06/27/20 08:48 Feosol 325 Mg PO 07/26/20 11:14 Not Given BID CARMEN Sodium Chloride 1,000 mls @ 100 mls/hr 06/20/20 21:06 06/27/20 15:25 Sodium Chloride 0.9% 1000 Ml IV 07/20/20 21:05 100 mls/hr .Q10H CARMEN Administration Ceftriaxone Sodium/Dextrose 1 g in 50 mls @ 100 mls/hr 06/21/20 22:00 06/26/20 21:11 Rocephin 1 Gm-D5w 50 Ml Bag IV 07/21/20 21:59 100 mls/hr QPM CARMEN Administration Miscellaneous Information 1 each 06/21/20 12:45 Medication Intervention MC 07/21/20 12:44 .RN TO CHECK ON CARMEN Discontinued Medications Generic Name Dose Route Start Last Admin Trade Name Freq PRN Reason Stop Dose Admin Aspirin 81 mg 06/25/20 10:00 06/26/20 19:15 Ecotrin 81 Mg PO 07/25/20 09:59 Not Given DAILY CARMEN Sodium Chloride 1,000 mls @ 50 mls/hr 06/20/20 15:00 06/22/20 06:16 Sodium Chloride 0.9% 1000 Ml IV 07/20/20 14:59 50 mls/hr .Q20H CARMEN Administration Ceftriaxone Sodium/Dextrose 1 g in 50 mls @ 100 mls/hr 06/20/20 22:37 06/20/20 22:40 Rocephin 1 Gm-D5w 50 Ml Bag IV 06/20/20 23:06 100 mls/hr ONCE ONE Administration Sodium Chloride 100 mls @ 100 mls/hr 06/22/20 16:56 Sodium Chloride 0.9% 100 Ml Ivpb IV 06/22/20 17:55 .Q1H ONE Sodium Chloride 1,000 mls @ 999 mls/hr 06/22/20 17:40 06/22/20 17:41 Sodium Chloride 0.9% 1000 Ml IV 06/22/20 18:40 999 mls/hr .Q1H1M STA Administration Potassium Chloride 20 meq in 100 mls @ 50 mls/hr 06/25/20 10:30 06/25/20 11:01 Potassium Chloride 20 Meq In Water 100ml IV 06/25/20 12:29 50 mls/hr STAT ONE Administration Potassium Chloride 20 meq 06/25/20 09:30 06/26/20 19:15 Klor Con 10 Meq PO 06/25/20 09:31 Not Given NOW ONE Intake & Output (Last 24 hours) 06/25/20 06/26/20 06/27/20 06/28/20 11:59 11:59 11:59 11:59 Intake Total 1281 4024 3486 1112 Output Total 1250 1200 1200 650 Balance 31 2824 2286 462 Orders (Last 24 hours) Category Date Time Status Discharge Planning,Consult Routine Discharge 06/27/20 Active CAROTID BILATERAL [US] Routine Exams 06/27/20 08:45 Completed MRI BRAIN W/O CONTRAST [MRI] Routine Exams 06/27/20 08:00 Completed Speech Therapy Eval & Treat [ Eval & Treat ( Order) ST 06/27/20 15:34 Active ] .as ordered Patient Care Notes (Last 24 hours) 06/27/20 15:19 Case Management Note by OtisCharlene SPOKE WITH PT'S , FERNANDO. SHE IS IN AGREEMENT FOR PT TO GO TO REHAB FACILITY FOR EXTENDED REHAB. SHE PREFERS THAT PT GO TO [facility] [place]. CALL TO [place], AWAIT RETURN PHONE CALL. Initialized on 06/27/20 15:19 - END OF NOTE 06/27/20 12:24 Nursing Note by Lisandra Hernandez dr. at bedside, rounding on pt. plan to transfer to [facility] today if able. Initialized on 06/27/20 12:24 - END OF NOTE 06/27/20 11:46 Physical Therapy Note by Thalia Valencia PT. SEEN BY P.T. THIS AM TO ASSIST W/ TRANSFER TO TAKE PT. TO MRI. PT. IN BED UPON P.T. ARRIVAL TO ROOM. PT. HAD EYES CLOSED AND WAS MINIMALLY RESPONSIVE. SUPINE TO SIT MOD ASSIST X 2; PT. ABLE TO SIT ON SIDE OF BED FOR ~ 1 MIN W/ CGA. PT. PERFORMED TRANSFER TO CHAIR W/ MOD ASSIST X 2. PT. DID NOT HAVE EYES OPEN DURING TRANSFER. DID NOTE TENDENCY TO ROTATE HEAD TO RIGHT SOME L NEGLECT IS PRESENT. REHAB PROGNOSIS GUARDED AT THIS TIME UNTIL LEVEL OF AWARENESS IMPROVES. WILL CONT. PT 5X/WK TO PROGRESS INDEPENDENCE W/ FUNCTIONAL MOBILITY TOLERATED. THALIA VALENCIA, PT Initialized on 06/27/20 11:46 - END OF NOTE 06/27/20 10:47 Case Management Note by Umu Rubio [place] STILL HAS NO BEDS AVAILABLE Initialized on 06/27/20 10:47 - END OF NOTE 06/26/20 19:45 (created 06/26/20 20:54) Nursing Note by TAN BARRERA, , CALLED TO GET MRI SAFETY SHEET FILLED OUT FOR MRI SCHEDULED FOR 06/27/20. Initialized on 06/26/20 20:54 - END OF NOTE Code(s): I63.549 - CEREB INFRC DUE TO UNSP OCCLS OR STENOS OF UNSP CEREBLR ART (2) UTI (urinary tract infection) Current Visit: Yes Status: Resolved Qualifiers: Urinary tract infection type: acute pyelonephritis Qualified Code(s): N10 - Acute pyelonephritis Code(s): N39.0 - URINARY TRACT INFECTION, SITE NOT SPECIFIED (3) Generalized weakness Current Visit: Yes Status: Acute Code(s): R53.1 - WEAKNESS (4) Confusion Current Visit: Yes Status: Acute Code(s): R41.0 - DISORIENTATION, UNSPECIFIED (5) Emphysema lung Current Visit: Yes Status: Acute Code(s): J43.9 - EMPHYSEMA, UNSPECIFIED (6) Old cerebrovascular accident (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
[2020-06-27] MEDS: ROCEPHIN 1 Gm-D5w 50 ml Bag** 1 G/50 ML IVPB IV SCH (20:50)
[2020-06-27] MEDS: LIPITOR 40MG PO SCH (20:50)
[2020-06-27] MEDS: TYLENOL 325 MG PO PRN (23:28)
[2020-06-28] MEDS: Sodium Chloride 0.9% 1000 ML 1,000 ML IV SCH ×3 (00:58→22:31)
[2020-06-28] MEDS: ASPIRIN 600 MG PR SCH (10:05)
[2020-06-28] MEDS: FEOSOL 325 MG PO SCH ×2 (10:06→21:27)
--- NOTE | 2020-06-28 11:05 | PCM.NOTE ---
Date and Time: 06/28/20 1104 Subjective Assessment: doing ok - Review of Systems Constitutional: No Fever, No Chills Eyes: No Symptoms Ears, Nose, & Throat: No Symptoms Respiratory: No Cough, No Short Of Breath Cardiac: No Chest Pain, No Edema, No Syncope Abdominal/Gastrointestinal: No Abdominal Pain, No Nausea, No Vomiting, No Diarrhea Genitourinary Symptoms: No Dysuria Musculoskeletal: No Back Pain, No Neck Pain Skin: No Rash Neurological: Focal Weakness, Lethargy, No Dizziness, No Sensory Changes Psychological: No Symptoms Endocrine: No Symptoms Hematologic/Lymphatic: No Symptoms Immunological/Allergic: No Symptoms Objective Exam General Appearance: no apparent distress, alert Neurologic Exam: alert, sensation nml, motor deficits, aphasia, dysarthria, abnormal gait, abnormal cerebellar tests Skin Exam: normal color, warm, dry Eye Exam: PERRL, EOMI, eyes nml inspection Ears, Nose, Throat Exam: normal ENT inspection, pharynx normal, moist mucous membranes Neck Exam: normal inspection, non-tender, supple, full range of motion Respiratory Exam: normal breath sounds, lungs clear, No respiratory distress Cardiovascular Exam: regular rate/rhythm, normal heart sounds Gastrointestinal/Abdomen Exam: soft, No tenderness, No mass Extremity Exam: normal inspection, normal range of motion Back Exam: normal inspection, normal range of motion, No CVA tenderness, No vertebral tenderness Male Genitalia Exam: deferred Rectal Exam: deferred OBJECTIVE DATA Vital Signs: Vital Signs - 24 hr Temp Pulse Resp BP Pulse Ox 06/28/20 07:45 97.5 F 63 18 160/71 96 06/28/20 04:00 97.4 F 75 20 163/73 94 L 06/27/20 23:25 99.8 F 82 18 154/70 94 L 06/27/20 20:00 99.6 F 78 16 160/74 94 L 06/27/20 16:00 98.4 F 84 18 155/70 98 06/27/20 12:00 98.0 F 90 22 161/71 98 Oxygen-Last 24 hours Oxygen Flowrate (L/min)-RT 2 Pain Assessment - Last Documented Pain Intensity 0 Intake and Output: Intake & Output 06/25/20 06/26/20 06/27/20 06/28/20 11:59 11:59 11:59 11:59 Intake Total 1281 4024 3486 1172 Output Total 1250 1200 1200 1000 Balance 31 2824 2286 172 Weight 62.5 kg Radiology Exams: Radiology Procedures Category Date Time Status CAROTID BILATERAL [US] Routine Exams 06/27/20 08:45 Completed MRI BRAIN W/O CONTRAST [MRI] Routine Exams 06/27/20 08:00 Completed Multi-Disciplinary Progress Notes: Multi-Disciplinary Progress Notes 06/27/20 15:19 Case Management Note by OtisCharlene SPOKE WITH PT'S , FERNANDO. SHE IS IN AGREEMENT FOR PT TO GO TO REHAB FACILITY FOR EXTENDED REHAB. SHE PREFERS THAT PT GO TO [facility] [place]. CALL TO [place], AWAIT RETURN PHONE CALL. Initialized on 06/27/20 15:19 - END OF NOTE 06/27/20 11:46 Physical Therapy Note by Thalia Foster PT. SEEN BY P.T. THIS AM TO ASSIST W/ TRANSFER TO TAKE PT. TO MRI. PT. IN BED UPON P.T. ARRIVAL TO ROOM. PT. HAD EYES CLOSED AND WAS MINIMALLY RESPONSIVE. SUPINE TO SIT MOD ASSIST X 2; PT. ABLE TO SIT ON SIDE OF BED FOR ~ 1 MIN W/ CGA. PT. PERFORMED TRANSFER TO CHAIR W/ MOD ASSIST X 2. PT. DID NOT HAVE EYES OPEN DURING TRANSFER. DID NOTE TENDENCY TO ROTATE HEAD TO RIGHT SOME L NEGLECT IS PRESENT. REHAB PROGNOSIS GUARDED AT THIS TIME UNTIL LEVEL OF AWARENESS IMPROVES. WILL CONT. PT 5X/WK TO PROGRESS INDEPENDENCE W/ FUNCTIONAL MOBILITY TOLERATED. 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 Current Visit: Yes Status: Acute Qualifiers: Laterality of affected vessel: bilateral Qualified Code(s): I63.543 - Cerebral infarction due to unspecified occlusion or stenosis of bilateral cerebellar arteries Assessment & Plan: Chief Complaint Diagnosis LETHARGY, CONFUSION Allergies Allergy/AdvReac Type Severity Reaction Status Date / Time No Known Drug Allergies Allergy Unverified 06/20/20 14:46 Vital Signs (Last 24 hours) Temp Pulse Resp BP Pulse Ox 06/28/20 07:45 97.5 F 63 18 160/71 96 06/28/20 04:00 97.4 F 75 20 163/73 94 L 06/27/20 23:25 99.8 F 82 18 154/70 94 L 06/27/20 20:00 99.6 F 78 16 160/74 94 L 06/27/20 16:00 98.4 F 84 18 155/70 98 06/27/20 12:00 98.0 F 90 22 161/71 98 Home Medications Medication Instructions Recorded Confirmed Last Taken Type Ixekizumab [Taltz Autoinjector] 1 ea SQ Q30D 06/20/20 06/20/20 Unknown History Current Medications Generic Name Dose Route Start Last Admin Trade Name Freq PRN Reason Stop Dose Admin Acetaminophen 650 mg 06/23/20 18:36 06/27/20 23:28 Tylenol 325 Mg PO 07/23/20 18:35 650 mg Q4H PRN PRN Administration PAIN AND/OR FEVER Aspirin 325 mg 06/25/20 10:00 06/28/20 10:05 Aspirin 600 Mg [place] 07/25/20 09:59 Not Given DAILY CARMEN Atorvastatin Calcium 80 mg 06/25/20 20:00 06/27/20 20:50 Lipitor 40mg PO 07/25/20 19:59 80 mg 2000 CARMEN Administration Ferrous Sulfate 325 mg 06/26/20 11:15 06/28/20 10:06 Feosol 325 Mg PO 07/26/20 11:14 Not Given BID CARMEN Sodium Chloride 1,000 mls @ 100 mls/hr 06/20/20 21:06 06/28/20 00:58 Sodium Chloride 0.9% 1000 Ml IV 07/20/20 21:05 100 mls/hr .Q10H CARMEN Administration Ceftriaxone Sodium/Dextrose 1 g in 50 mls @ 100 mls/hr 06/21/20 22:00 06/27/20 20:50 Rocephin 1 Gm-D5w 50 Ml Bag IV 07/21/20 21:59 100 mls/hr QPM CARMEN Administration Miscellaneous Information 1 each 06/21/20 12:45 Medication Intervention MC 07/21/20 12:44 .RN TO CHECK ON CARMEN Discontinued Medications Generic Name Dose Route Start Last Admin Trade Name Freq PRN Reason Stop Dose Admin Aspirin 81 mg 06/25/20 10:00 06/26/20 19:15 Ecotrin 81 Mg PO 07/25/20 09:59 Not Given DAILY CARMEN Sodium Chloride 1,000 mls @ 50 mls/hr 06/20/20 15:00 06/22/20 06:16 Sodium Chloride 0.9% 1000 Ml IV 07/20/20 14:59 50 mls/hr .Q20H CARMEN Administration Ceftriaxone Sodium/Dextrose 1 g in 50 mls @ 100 mls/hr 06/20/20 22:37 06/20/20 22:40 Rocephin 1 Gm-D5w 50 Ml Bag IV 06/20/20 23:06 100 mls/hr ONCE ONE Administration Sodium Chloride 100 mls @ 100 mls/hr 06/22/20 16:56 Sodium Chloride 0.9% 100 Ml Ivpb IV 06/22/20 17:55 .Q1H ONE Sodium Chloride 1,000 mls @ 999 mls/hr 06/22/20 17:40 06/22/20 17:41 Sodium Chloride 0.9% 1000 Ml IV 06/22/20 18:40 999 mls/hr .Q1H1M STA Administration Potassium Chloride 20 meq in 100 mls @ 50 mls/hr 06/25/20 10:30 06/25/20 11:01 Potassium Chloride 20 Meq In Water 100ml IV 06/25/20 12:29 50 mls/hr STAT ONE Administration Potassium Chloride 20 meq 06/25/20 09:30 06/26/20 19:15 Klor Con 10 Meq PO 06/25/20 09:31 Not Given NOW ONE Intake & Output (Last 24 hours) 06/25/20 06/26/20 06/27/20 06/28/20 11:59 11:59 11:59 11:59 Intake Total 1281 4024 3486 1172 Output Total 1250 1200 1200 1000 Balance 31 2824 2286 172 Weight 62.5 kg Orders (Last 24 hours) Category Date Time Status Speech Therapy Eval & Treat [ST Eval & Treat ( Order) ST 06/27/20 15:34 Active ] .as ordered Patient Care Notes (Last 24 hours) 06/27/20 15:19 Case Management Note by Charlene Berg SPOKE WITH PT'S , FERNANDO. SHE IS IN AGREEMENT FOR PT TO GO TO REHAB FACILITY FOR EXTENDED REHAB. SHE PREFERS THAT PT GO TO [facility] [place]. CALL TO [place], AWAIT RETURN PHONE CALL. Initialized on 06/27/20 15:19 - END OF NOTE 06/27/20 12:24 Nursing Note by Lisandra Hernandez dr. at bedside, rounding on pt. plan to transfer to [facility] today if able. Initialized on 06/27/20 12:24 - END OF NOTE 06/27/20 11:46 Physical Therapy Note by Thalia Foster PT. SEEN BY P.T. THIS AM TO ASSIST W/ TRANSFER TO TAKE PT. TO MRI. PT. IN BED UPON P.T. ARRIVAL TO ROOM. PT. HAD EYES CLOSED AND WAS MINIMALLY RESPONSIVE. SUPINE TO SIT MOD ASSIST X 2; PT. ABLE TO SIT ON SIDE OF BED FOR ~ 1 MIN W/ CGA. PT. PERFORMED TRANSFER TO CHAIR W/ MOD ASSIST X 2. PT. DID NOT HAVE EYES OPEN DURING TRANSFER. DID NOTE TENDENCY TO ROTATE HEAD TO RIGHT SOME L NEGLECT IS PRESENT. REHAB PROGNOSIS GUARDED AT THIS TIME UNTIL LEVEL OF AWARENESS IMPROVES. WILL CONT. PT 5X/WK TO PROGRESS INDEPENDENCE W/ FUNCTIONAL MOBILITY TOLERATED. THALIA FOSTER, PT Initialized on 06/27/20 11:46 - END OF NOTE Code(s): I63.549 - CEREB INFRC DUE TO UNSP OCCLS OR STENOS OF UNSP CEREBLR ART (2) UTI (urinary tract infection) Current Visit: Yes Status: Resolved Qualifiers: Urinary tract infection type: acute pyelonephritis Qualified Code(s): N10 - Acute pyelonephritis Code(s): N39.0 - URINARY TRACT INFECTION, SITE NOT SPECIFIED (3) Generalized weakness Current Visit: Yes Status: Acute Code(s): R53.1 - WEAKNESS (4) Confusion Current Visit: Yes Status: Acute Code(s): R41.0 - DISORIENTATION, UNSPECIFIED (5) Emphysema lung Current Visit: Yes Status: Acute Code(s): J43.9 - EMPHYSEMA, UNSPECIFIED (6) Old cerebrovascular accident (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
[2020-06-28] MEDS: LIPITOR 40MG PO SCH (21:26)
[2020-06-28] MEDS: ROCEPHIN 1 Gm-D5w 50 ml Bag** 1 G/50 ML IVPB IV SCH (21:26)
[2020-06-29] MEDS: Sodium Chloride 0.9% 1000 ML 1,000 ML IV SCH (08:39)
[2020-06-29] MEDS: FEOSOL 325 MG PO SCH ×3 (09:48→22:52)
[2020-06-29] MEDS: ASPIRIN 600 MG PR SCH (09:48)
--- NOTE | 2020-06-29 11:16 | PCM.NOTE ---
Date and Time: 06/29/20 1115 Subjective Assessment: doing ok - Review of Systems Constitutional: No Fever, No Chills Eyes: No Symptoms Ears, Nose, & Throat: No Symptoms Respiratory: No Cough, No Short Of Breath Cardiac: No Chest Pain, No Edema, No Syncope Abdominal/Gastrointestinal: No Abdominal Pain, No Nausea, No Vomiting, No Diarrhea Genitourinary Symptoms: No Dysuria Musculoskeletal: No Back Pain, No Neck Pain Skin: No Rash Neurological: No Dizziness, No Focal Weakness, No Sensory Changes Psychological: No Symptoms Endocrine: No Symptoms Hematologic/Lymphatic: No Symptoms Immunological/Allergic: No Symptoms Objective Exam General Appearance: no apparent distress, alert Neurologic Exam: alert, oriented x 3, cooperative, normal mood/affect, nml cerebellar function, sensation nml, No motor deficits Skin Exam: normal color, warm, dry Eye Exam: PERRL, EOMI, eyes nml inspection Ears, Nose, Throat Exam: normal ENT inspection, pharynx normal, moist mucous membranes Neck Exam: normal inspection, non-tender, supple, full range of motion Respiratory Exam: normal breath sounds, lungs clear, No respiratory distress Cardiovascular Exam: regular rate/rhythm, normal heart sounds Gastrointestinal/Abdomen Exam: soft, No tenderness, No mass Extremity Exam: normal inspection, normal range of motion Back Exam: normal inspection, normal range of motion, No CVA tenderness, No vertebral tenderness Male Genitalia Exam: deferred Rectal Exam: deferred OBJECTIVE DATA Vital Signs: Vital Signs - 24 hr Temp Pulse Resp BP Pulse Ox 06/29/20 07:35 99.2 F 80 18 178/75 91 L 06/29/20 04:00 99.2 F 86 17 140/64 92 L 06/29/20 00:00 98.2 F 83 18 159/74 94 L 06/28/20 19:38 98.9 F 78 18 145/67 94 L 06/28/20 16:00 98.5 F 101 H 20 141/72 94 L 06/28/20 11:54 98.7 F 83 22 149/68 94 L Pain Assessment - Last Documented Pain Intensity 0 Intake and Output: Intake & Output 06/26/20 06/27/20 06/28/20 06/29/20 11:59 11:59 11:59 11:59 Intake Total 4024 3486 1172 4081 Output Total 1200 1200 1000 900 Balance 2824 2286 172 3181 Weight 62.5 kg Multi-Disciplinary Progress Notes: Multi-Disciplinary Progress Notes 06/28/20 18:31 Occupational Therapy Note by Thalia Knight OT ASSISTED WITH TRANSFERRING MAX FROM BED TO CHAIR AT LUNCH TIME AND THEN BACK TO BED ABOUT 4 1/2 HOURS LATER. HE REQ. MAX ASSIST WITH BED MOBILITY. WAS ABLE TO SIT ON SIDE OF BED WITH MIN-MOD ASSIST. REQ. MAX ASSIST X 2 TO TRANSFER FROM BED TO CHAIR THEN BACK TO BED FROM CHAIR. HE DID TOLERATE UP IN CHAIR LONGER AND BETTER THAN EXPECTED WITH HIS SPOUSE BEING PRESENT FOR MOST OF THE AFTERNOON. Initialized on 06/28/20 18:31 - END OF NOTE 06/28/20 14:38 Physical Therapy Note by Thalia Foster PT. IN BED UPON P.T. ARRIVAL TO ROOM. MINIMALLY RESPONSIVE. NSG PLANNING TO CALL SPOUSE TO SEE IF SHE IS ABLE TO COME IN TO ASSIST W/ INCREASING ALERTNESS. PT. KEEPS EYES CLOSED DURING SESSION. PERFORMED SUPINE TO SIT W/ MOD ASSIST W/ HOB ELEVATED. PT. ABLE TO SIT ON SIDE OF BED FOR ~ 1 MIN W/ CGA-MIN ASSIST. BED TO CHAIR TRANSFER MORE DIFFICULT TODAY AND REQUIRED MOD-MAX ASSIST X 2. PT. HAS DIFFICULTY MAINTAINING WB BILATERAL LES TODAY D/T WEAKNESS. STILL EXHIBITS SOME L NEGLECT WELL AND POSITIONS NECK IN R ROTATION. WILL CONT. P.T. 5X/WK TO ADDRESS LE STRENGTH AND BALANCE AND MAXIMIZE OVERALL FUNCTIONAL POTENTIAL. THALIA FOSTER, PT Initialized on 06/28/20 14:38 - END OF NOTE 06/28/20 12:41 Case Management Note by Umu Rubio FROM [place] CALLED BACK AND STATED THAT A [facility] WOULD HANDLE THIS REFERRAL FOR ACUTE REHAB. HER PHONE NUMBER IS [phone]. I CALLED AND LEFT A VOICEMAIL I ALSO FAXED REFERRAL PACKET TO HER FAX Initialized on 06/28/20 12:41 - END OF NOTE 06/28/20 12:13 Case Management Note by Umu Rubio LEFT MESSAGE WITH LETTING HER KNOW SHE COULD COME IN AND SEE HIM D/T POOR CONDITION Initialized on 06/28/20 12:13 - END OF NOTE 06/28/20 11:49 Case Management Note by Umu Rubio HAD MESSAGE FROM NATA AT [place]- SHE IS NEEDING ADDITIONAL INFORMATION TO SEE IF PATIENT IS ABLE TO [facility]. I CALLED HER BACK AT [phone] AND GAVE HER THE INFORMATION REQUESTED. 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 Current Visit: Yes Status: Acute Qualifiers: Laterality of affected vessel: bilateral Qualified Code(s): I63.543 - Cerebral infarction due to unspecified occlusion or stenosis of bilateral cerebellar arteries Assessment & Plan: Last Vital Signs Temp 99.2 F 06/29/20 07:35 Pulse 80 06/29/20 07:35 Resp 18 06/29/20 07:35 BP 178/75 06/29/20 07:35 Pulse Ox 91 L 06/29/20 07:35 Allergies No Known Drug Allergies Allergy (Unverified 06/20/20 14:46) Active Medications Acetaminophen (Tylenol 325 Mg) 650 mg PO Q4H PRN PRN PRN Reason: PAIN AND/OR FEVER Stop: 07/23/20 18:35 Last Admin: 06/27/20 23:28 Dose: 650 mg Documented by: Aspirin (Aspirin 600 Mg) 325 mg [place] DAILY [facility] Stop: 07/25/20 09:59 Last Admin: 06/29/20 09:48 Dose: Not Given Documented by: Atorvastatin Calcium (Lipitor 40mg) 80 mg PO 2000 [facility] Stop: 07/25/20 19:59 Last Admin: 06/28/20 21:26 Dose: Not Given Documented by: Ferrous Sulfate (Feosol 325 Mg) 325 mg PO BID [facility] Stop: 07/26/20 11:14 Last Admin: 06/29/20 09:48 Dose: Not Given Documented by: Sodium Chloride (Sodium Chloride 0.9% 1000 Ml) 1,000 mls @ 100 mls/hr IV .Q10H [facility] Stop: 07/20/20 21:05 Last Admin: 06/29/20 08:39 Dose: 100 mls/hr Documented by: Ceftriaxone Sodium/Dextrose (Rocephin 1 Gm-D5w 50 Ml Bag) 1 g in 50 mls @ 100 mls/hr IV QPM [facility] Stop: 07/21/20 21:59 Last Admin: 06/28/20 21:26 Dose: 100 mls/hr Documented by: Miscellaneous Information (Medication Intervention) 1 each MC .RN TO CHECK ON [facility] Stop: 07/21/20 12:44 Intake & Output 06/28/20 06/29/20 11:59 11:59 Intake Total 1172 4081 Output Total 1000 900 Balance 172 3181 Weight 62.5 kg Code(s): I63.549 - CEREB INFRC DUE TO UNSP OCCLS OR STENOS OF UNSP CEREBLR ART (2) UTI (urinary tract infection) Current Visit: Yes Status: Resolved Qualifiers: Urinary tract infection type: acute pyelonephritis Qualified Code(s): N10 - Acute pyelonephritis Code(s): N39.0 - URINARY TRACT INFECTION, SITE NOT SPECIFIED (3) Generalized weakness Current Visit: Yes Status: Acute Code(s): R53.1 - WEAKNESS (4) Confusion Current Visit: Yes Status: Acute Code(s): R41.0 - DISORIENTATION, UNSPECIFIED (5) Emphysema lung Current Visit: Yes Status: Acute Code(s): J43.9 - EMPHYSEMA, UNSPECIFIED (6) Old cerebrovascular accident (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
[2020-06-29] MEDS ORDERED: Catapres-TTS 1 PATCH TOP SCH (12:15)
[2020-06-29] MEDS: LIPITOR 40MG PO SCH ×2 (22:42→22:52)
[2020-06-29] MEDS: ROCEPHIN 1 Gm-D5w 50 ml Bag** 1 G/50 ML IVPB IV SCH (22:43)
--- NOTE | 2020-06-30 07:52 | PCM.NOTE ---
Date and Time: 06/30/20 0746 Subjective Assessment: patient is still having difficulty moving Around as well as also having difficulty in swallowing. Patient is unable to stand at all as well as unable to get his posture in the chair - Review of Systems Constitutional: Lethargy, Weakness, No Fever, No Chills Eyes: No Symptoms Ears, Nose, & Throat: No Symptoms Respiratory: No Cough, No Short Of Breath Cardiac: No Chest Pain, No Edema, No Syncope Abdominal/Gastrointestinal: No Abdominal Pain, No Nausea, No Vomiting, No Diarrhea Genitourinary Symptoms: No Dysuria Musculoskeletal: No Back Pain, No Neck Pain Skin: No Rash Neurological: Focal Weakness, Gait Changes, Lethargy, Sensory Changes, Speech Changes, No Dizziness Psychological: No Symptoms Endocrine: No Symptoms Hematologic/Lymphatic: No Symptoms Immunological/Allergic: No Symptoms Objective Exam General Appearance: no apparent distress, alert Neurologic Exam: alert, motor deficits, disoriented, confusion, slurred speech, aphasia, dysarthria, abnormal gait Skin Exam: normal color, warm, dry Eye Exam: PERRL, EOMI, eyes nml inspection Ears, Nose, Throat Exam: normal ENT inspection, pharynx normal, moist mucous membranes Neck Exam: normal inspection, non-tender, supple, full range of motion Respiratory Exam: normal breath sounds, lungs clear, No respiratory distress Cardiovascular Exam: regular rate/rhythm, normal heart sounds Gastrointestinal/Abdomen Exam: soft, No tenderness, No mass Extremity Exam: normal inspection, normal range of motion Back Exam: normal inspection, decreased range of motion, No CVA tenderness, No vertebral tenderness Male Genitalia Exam: deferred Rectal Exam: deferred OBJECTIVE DATA Vital Signs: Vital Signs - 24 hr Temp Pulse Resp BP Pulse Ox 06/30/20 07:41 98.4 F 101 H 18 175/91 95 06/30/20 04:00 99.2 F 100 H 18 152/74 98 06/30/20 00:00 99.8 F 100 H 16 153/86 90 L 06/29/20 19:39 98.2 F 79 18 173/79 93 L 06/29/20 16:00 99.1 F 92 H 20 170/85 93 L 06/29/20 12:00 99.0 F 90 22 181/88 94 L Pain Assessment - Last Documented Pain Intensity 0 Intake and Output: Intake & Output 1206/28/20 06/29/20 06/30/20 11:59 11:59 11:59 11:59 Intake Total 3486 1172 4081 1125 Output Total 1200 1000 900 725 Balance 2286 172 3181 400 Weight 62.5 kg Multi-Disciplinary Progress Notes: Multi-Disciplinary Progress Notes 06/30/20 06:35 Case Management Note by Umu Rubio UPDATED CLINICALS SENT TO [place] 06/29 FOR HOPEFUL REHAB PLACEMENT IN THEIR FACILITY Initialized on 06/30/20 06:35 - END OF NOTE 06/29/20 15:43 Occupational Therapy Note by Thalia Knight SEEN THIS DATE BY OT AT BEDSIDE. HE WAS UP IN CHAIR WHERE HE HAD BEEN SITTING FOR APPROXIMATELY 5+ HOURS. HIS WAS ALSO PRESENT. HE REQ. MAX ASSIST WITH BASIC SHAVING WITH ELECTRIC RAIZOR BUT DID AT LEAST HOLD RAIZOR IN LEFT HAND AND ATTEMPT TO TURN OFF AND ON AND DID PUT UP TO HIS FACE BUT IT WAS IF HE DIDN'T HAVE THE DESIRE, ATTENTION SPAN, OR ENERGY LEVEL TO GET THE TASK PERFORMED. HE ALSO REQ. MAX ASSIST TO COMB HAIR AFTER OT MADE SEVERAL ATTEMPTS FOR HIM TO DO HIMSELF. HE REQ. HAND OVER HAND ASSIST TO PERFORM BUE AROM BUT DID SEEM TO HELP SOMEWHAT. HE HAS NORMAL MUSCLE TONE. HE APPEARS TO HAVE RIGHT SIDE NEGLECT WHICH SEEMS A LITTLE BETTER TODAY THAN IT WAS THE LAST FEW DAYS. HE DID STAND FOR APPROX. 15 SEC WITH 2 THERAPIST ASSISTING WHILE HE WAS HOLDING ONTO WALKER. HE REQ. MAX ASSIST X 1 AND MIN ASSIST X ANOTHER FOR TRANSFER BACK TO BED. HE DID ATTEMPT TO SCOOT SELF BACK ON BED DURING TRANSFER WHEN HE GOT TO EDGE OF BED. OT FEELS HE IS DEFINITELY MORE ALERT THIS DATE AND DID ATTEMPT TO DO MORE FOR SELF AND HELP WITH TRANSFERS. HE ALSO WAS MORE VERBAL TODAY AND EVEN HAD SOME SHORT SENTENCES. PRIOR TO TODAY IT WAS A NOD YES OR NO OR MAYBE ONE WORD ANSWERS OT WILL CONT TO TX. AND PROGRESS TOLERATED. HE DEFINTELY WILL BENEFIT FROM CONTINUED REHAB BEYOND ACUTE CARE D/C THIS MAN WAS VERY INDEPENDENT PLOF PER HIS SPOUSE'S REPORT. 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 Patient will require long-term rehabilitation due to stroke. Code(s): I63.549 - CEREB INFRC DUE TO UNSP OCCLS OR STENOS OF UNSP CEREBLR ART (2) UTI (urinary tract infection) Current Visit: Yes Status: Resolved Qualifiers: Urinary tract infection type: acute pyelonephritis Qualified Code(s): N10 - Acute pyelonephritis Code(s): N39.0 - URINARY TRACT INFECTION, SITE NOT SPECIFIED (3) Generalized weakness Current Visit: Yes Status: Acute Code(s): R53.1 - WEAKNESS (4) Confusion Current Visit: Yes Status: Acute Code(s): R41.0 - DISORIENTATION, UNSPECIFIED (5) Emphysema lung Current Visit: Yes Status: Acute Code(s): J43.9 - EMPHYSEMA, UNSPECIFIED (6) Old cerebrovascular accident (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
[2020-06-30] MEDS: Sodium Chloride 0.9% 1000 ML 1,000 ML IV SCH (08:40)
[2020-06-30] MEDS: LIPITOR 40MG PO SCH (08:41)
[2020-06-30] MEDS: FEOSOL 325 MG PO SCH ×2 (08:41→22:24)
[2020-06-30] MEDS: Ecotrin 325 MG PO SCH (11:07)
[2020-06-30] MEDS: ROCEPHIN 1 Gm-D5w 50 ml Bag** 1 G/50 ML IVPB IV SCH (22:24)
--- NOTE | 2020-07-01 08:53 | XRAY ---
Indication: Cough. intermediate placement. Comparison: June 20, 2020. Portable chest demonstrates new mild left base infiltrate/atelectasis with small effusion. Remaining heart and right lung unremarkable. Bony thorax intact again with mild osteopenia, degenerative changes, and scoliosis.
[2020-07-01] MEDS: Ecotrin 325 MG PO SCH (11:40)
[2020-07-01] MEDS: FEOSOL 325 MG PO SCH (11:40)
[2020-07-01 12:45] VITALS: BP 168/89; PULSE 98; O2SAT 94
[2020-07-01] MEDS ORDERED: PATIENT OWN MEDICATION SQ SCH (13:00)
== END 2020-07-01 17:40 | DRG 689 ==
LOC: ED 14:32 → ICU 21:03 → OBSVTOIN 06-22 11:44 → MED SURG 06-22 16:48
PROVIDERS: ADMIT General Practice; ATTEND General Practice
DX: N39.0 Urinary tract infection, site not specified (principal); I63.543 Cerebral infarction due to unspecified occlusion or stenosis of bilateral cerebellar arteries; R41.0 Disorientation, unspecified; R53.1 Weakness; J43.9 Emphysema, unspecified; Z86.73 Personal history of transient ischemic attack (TIA), and cerebral infarction without residual deficits; D50.9 Iron deficiency anemia, unspecified; Z79.899 Other long term (current) drug therapy
CPT/HCPCS: 36000; 36415; 36600; 51702; 70450; 70551; 71045; 71260; 80048; 80053; 81001; 82140; 82375; 82607; 82746; 82803; 83540; 83550; 83605; 83735; 84443; 84484; 85025; 85027; 85045; 85379; 87086; 93005; 93041; 93268; 93880; 94760; 99284; J0696; J3480; Q3014; 97110-GP; A9270-GY; G0378